=== PATIENT | female | born 1935 | race Caucasian/White ===

== ENCOUNTER 2020-06-30 22:23 | Emergency (ER) | payer MEDICARE, BC, SELFPAY ==
--- NOTE | ~2020-06-30 | CT_ITS ---
EXAMINATION: CT abdomen pelvis w con DATE: 07/01/2020 00:20 INDICATION: Abdominal pain. TECHNIQUE: Computed tomography (CT) of the abdomen and pelvis was performed with 100 mL Omnipaque 350 intravenous contrast. Automated exposure control and iterative reconstruction technique were employe d. The dose-length product was 1134.03 mGy-cm. COMPARISON: CT abdomen and pelvis 01/28/2018 FINDINGS: The visualized portions of the lung bases demonstrate mild atelectasis. There is mild chron ic lung disease in paraspinal right lower lobe. No pleural effusion. Cardiomegaly is noted. There are coronary artery calcifications. Again seen is a small pericardial effusion. Again seen is mild intra hepatic biliary duct dilatation, likely secondary to cholecystectomy. The spleen and pancreas are nor mal. There are masses in the adrenal glands measuring up to 2.0 cm on the left without change in size , likely adenomas. There are cysts in the kidneys measuring up to 3.6 cm on the right. There is an an astomosis in the rectosigmoid. There are no dilated loops of bowel. The appendix is not visualized. T here are no pathologically enlarged lymph nodes. There is no free intraperitoneal fluid. There is a p eriumbilical hernia containing fat. There are multiple fibroids in the uterus. The endometrial comple x is thickened to 11 mm. There is severe thoracolumbar spondylosis. There are changes of posterior fu kavya procedure from L3 to L5. There is moderate osteoarthritis of the hips. IMPRESSION: 1. Thickened endometrial complex. The differential diagnosis includes endometrial hyperplasia, polyp, and carcinoma. Biopsy is recommended. 2. Periumbilical hernia containing fat. Reviewed, dictated and finalized at location A. GER MAINTENANCE IMPRESSION: 1. Thickened endometrial complex. The differential diagnosis includes endometri al hyperplasia, polyp, and carcinoma. Biopsy is recommended. 2. Periumbilical hernia containing fat.
[2020-06-30 22:20] VITALS: PULSE 97; RESP 20; TEMP 37; O2SAT 100
[2020-06-30 22:31] VITALS: BP 149/107
--- NOTE | 2020-06-30 22:35 | PC.NURSE ---
daughter of the pt is named emerita can be reached at [phone]
[2020-06-30 23:14] VITALS: BP 158/107; PULSE 82; RESP 12; O2SAT 99
--- NOTE | 2020-06-30 23:15 | PC.NURSE ---
Pt. unable to void
--- NOTE | 2020-06-30 23:15 | PC.NURSE ---
Pt. unable to void at this time.
[2020-06-30 23:49] LABS: Basophils Percent Auto 0.3 % (0.2-1.2); Eosinophils Absolute Auto 0.1 K/mm3 (0-0.3); Eosinophils Percent Auto 1.3 % (0-4.4); Hematocrit 46.2 % (37.0-47.0); Hemoglobin 15.1 g/dL (12.0-15.0); Immature Granulocyte Absolute 0.03 K/mm3 (0.00-0.031); Immature Granulocyte Percent A 0.3 % (0-0.5); Lymphocytes Percent Auto 18.3 % (18.3-44.2); Mean Corpuscular HGB Conc 32.7 g/dl (32-36); Mean Corpuscular Hemoglobin 31.2 pg (26-34); Mean Corpuscular Volume 95.5 fl (80-100); Mean Platelet Volume 10.9 fl (7.4-10.4); Monocytes Absolute Auto 0.6 K/mm3 (0.1-0.6); Neutrophils Absolute Auto 6.3 K/mm3 (1.3-6.7); Neutrophils Percent Auto 72.8 % (45.5-73.1); Platelet Count Result 207 k/mm3 (150-375); Red Blood Count 4.84 M/mm3 (4.2-5.4); Red Cell Distribution Width 14.2 % (11.5-14.5); White Blood Count 8.7 K/mm3 (4.5-10.0)
[2020-06-30] MEDS: MORPHINE SULFATE (*CRX) 4 MG/ML INJ IV PUSH (23:49)
[2020-06-30] MEDS: ONDANSETRON INJ 4 MG/2 ML VIAL IV PUSH (23:49)
--- NOTE | 2020-06-30 23:51 | ED.GENADULT ---
HPI - General Adult General Chief complaint: Abdominal Pain Stated complaint: flank pain Time Seen by Provider: 06/30/20 23:18 History of Present Illness HPI narrative: Patient is a 85-year-old female who presents the emergency department with chief complaint of abdominal pain. The patient reports that she has pain on the right side of her abdomen states that several months ago she bent over and felt a click in her right hip area. The patient states that since then she has been having discomfort and it is gradually gotten worse. The patient states that the pain now is on the right side of her abdomen describes it as sharp states is worse with movement. Patient states she has an appointment scheduled for tomorrow morning with her primary care physician but today the pain got so bad that she decided to come to the emergency department for evaluation. Patient reports that she has prior history of an appendectomy and a cholecystectomy. Patient denies fever denies chills denies vomiting or diarrhea. Patient also reports that she has history of a bowel perforation with bowel resection Related Data Home Medications Medication Instructions Recorded Confirmed apixaban 5 mg tablet 5 mg PO BID 04/08/19 carvedilol 3.125 mg tablet 3.125 mg PO Q12H 04/08/19 hydrochlorothiazide 25 mg tablet 25 mg PO DAILY 04/08/19 Allergies Allergy/AdvReac Type Severity Reaction Status Date / Time naproxen Allergy Unknown Unknown Verified 06/30/20 22:27 Review of Systems Review of Systems: Narrative: A 10 system review of systems was completed on the patient and is negative except for what is stated in the HPI. Nursing and ancillary documentation was reviewed. FOR[facility]LY [facility], [facility] Past Medical History Medical History Chronic diarrhea Surgical History Surgical History Status post laparoscopic-assisted sigmoidectomy Family History Family History Father Family history of malignant neoplasm, Onset Age: 57 Patient's father is Other Family history of coronary artery disease Social History Social History Smoking status: Never smoker Second hand tobacco smoke exposure: No Alcohol intake: never Substance use: never Substance use type: does not use Gender identity (if verbalized by the patient): Female Exam Narrative: Exam Narrative: GENERAL: Well-appearing, well-nourished, and in no acute distress. HEAD: Normocephalic, atraumatic. EYES: PERRLA and EOMI. ENT: Nares clear, no rhinorrhea or epistaxis. Mucous membranes moist. NECK: Supple. CHEST: Clear to auscultation. No respiratory distress. HEART: Regular rate and rhythm. No murmur heard. Normal peripheral pulses. ABDOMEN: Soft, diffusely tender on the right quadrant and right lower quadrant, nondistended, normal active bowel sounds. EXTREMITIES: Normal range of motion. No edema. SKIN: Warm, dry, no rash. NEURO: No focal deficits. Alert and oriented x3. PSYCH: Normal mood and affect. Course Course Emergency Course: CT scan of the abdomen pelvis shows no acute abnormality. Laboratory studies were within normal limits with exception of a slight urinary tract infection. Vital Signs Vital signs: Vital Signs Temperature 37.0 C 06/30/20 22:20 Pulse Rate 97 06/30/20 22:20 Respiratory Rate 20 06/30/20 22:20 Pulse Oximetry 100 06/30/20 22:20 Temperature 37.0 C 06/30/20 22:20 Pulse Rate 91 07/01/20 00:28 Respiratory Rate 12 07/01/20 00:28 Blood Pressure 136/115 H 07/01/20 00:28 Pulse Oximetry 95 07/01/20 00:28 Medical Decision Making Vital Signs Vital Signs: Vital Signs Temperature 37.0 C 06/30/20 22:20 Pulse Rate 97 06/30/20 22:20 Respiratory Rate 20 06/30/20 22:20 Pulse
[2020-06-30] MEDS: SODIUM CHLORIDE 0.9% IV 1,000 ML 999 ML IV CONT (23:59)
[2020-07-01 00:04] LABS: Alanine Aminotransferase 22 U/L (4-35); Albumin Level 4.1 g/dL (3.5-5.1); Alkaline Phosphatase 103 U/L (38-126); Anion Gap 4 mmol/L (8-16); Aspartate Amino Transferase 32 U/L (14-36); Bilirubin,Total 0.8 mg/dL (0.2-1.3); Blood Urea Nitrogen 23 mg/dL (7-17); Calcium 9.3 mg/dL (8.4-10.2); Carbon Dioxide 30 mmol/L (22-30); Chloride 105 mmol/L (98-107); Estimated Glomerular Filt Rate > 60; Glucose 113 mg/dL (65-105); Lipase 264 U/L (23-300); Potassium 3.7 mmol/L (3.4-5.0); Sodium 139 mmol/L (137-145)
[2020-07-01 00:28] VITALS: BP 136/115; PULSE 91; RESP 12; O2SAT 95
[2020-07-01 00:53] LABS: Add Urine Microscopic? YES; Appearance Urine Clear (Clear); Bilirubin Urine Negative (Negative); Blood Urine Negative (Negative); Color Urine Yellow (Yellow); Glucose Urine UA Negative (Negative); Ketones Urine Trace mg/dL (Negative); Leukocyte Esterase Ur 1+ LEU/UL (Negative); Mucus Urine Rare /lpf; Nitrate Urine Negative (Negative); Protein Urine 1+ mg/dL (Negative); RBC Urine 0-2 /hpf (0-2); Squamous Epithelial Cell Urine Moderate /hpf (Few); Urobilinogen Urine Negative mg/dL (<2.0)
[2020-07-01 00:54] LABS: Specific Grav Ur 1.032 (1.001-1.035)
[2020-07-01] MEDS: CEPHALEXIN 500 MG CAPSULE PO (01:19)
[2020-07-01] MEDS: MORPHINE SULFATE (*CRX) 4 MG/ML INJ IV PUSH (01:20)
[2020-07-01 01:50] VITALS: BP 158/90; PULSE 88; RESP 17; O2SAT 97
== END 2020-07-01 01:50 | disposition home or self-care (01) ==
PROVIDERS: Emergency Provider Emergency Medicine; PCP Family Medicine
DX: N39.0 Urinary tract infection, site not specified (principal); R10.84 Generalized abdominal pain
CPT/HCPCS: 36415; 74177; 80053; 81001; 83690; 85025; 96361; 96374; 96375; 96376; 99284; A9270; J2270; J2405; J7030; Q9967

== ENCOUNTER → 2020-07-15 09:47 | Outpatient (CLI) | payer MEDICARE, BC, SELFPAY ==
--- NOTE | ~2020-07-15 | XR_ITS ---
EXAMINATION: XR hip RT 2V w AP pelvis EXAM DATE: 07/15/2020 10:07 INDICATION: M25.551 - Pain in right hip . TECHNIQUE: Right hip frontal, 'frog leg' projections for interpretation. Frontal projection pelvis. There is no prior study for comparison. FINDINGS: Smooth right hip femoral head contour, no radiographic evidence of avascular necrosis. The re is moderate symmetric bilateral hip primary osteoarthritis. Lower lumbar fusion hardware. Calcifi cations in the pelvis are believed to be phleboliths. IMPRESSION: Moderate bilateral hip osteoarthritis. Reviewed, dictated and finalized at location B. ER ESTHETICIAN
== END ==
PROVIDERS: PCP Family Medicine; Visit Provider Family Medicine
DX: M16.0 Bilateral primary osteoarthritis of hip (principal)
CPT/HCPCS: 73502

== ENCOUNTER → 2020-09-10 00:48 | Outpatient (CLI) | payer MEDICARE, BC, SELFPAY ==
[2020-09-10 21:02] LABS: SARS-CoV-2 RNA PCR Negative
== END ==
PROVIDERS: PCP Family Medicine; Visit Provider Obstetrics & Gynecology
DX: Z01.812 Encounter for preprocedural laboratory examination (principal); Z20.822 Contact with and (suspected) exposure to COVID-19
CPT/HCPCS: C9803; U0003; U0005

== ENCOUNTER 2020-09-10 09:39 | Outpatient (CLI) | payer MEDICARE, BC, SELFPAY ==
--- NOTE | 2020-09-10 10:30 | ECG_ITS ---
Measurements Intervals Happy Rate: 93 P: RI: 0 QRS: -12 QRSD: 87 T: 8 QT: 349 QTc: 436 Interpretive Statements ATRIAL FIBRILLATION POOR R WAVE PROGRESSION, ANTERIOR LEADS CONSIDER INFERIOR INFARCT, AGE INDETERMINATE BASELINE ARTIFACT- I, II, III, AVR, AVL ABNORMAL ECG Electronically Signed On 09-10-2020 9:59:18 CDT by Chip Culp D.O.
== END 2020-09-10 09:40 | disposition home or self-care (01) ==
LOC: ANHSURGERY 09:43
PROVIDERS: PCP Family Medicine; Visit Provider Obstetrics & Gynecology
DX: I48.20 Chronic atrial fibrillation, unspecified (principal); Z01.818 Encounter for other preprocedural examination; R94.31 Abnormal electrocardiogram [ECG] [EKG]
CPT/HCPCS: 93005; C9803; U0003; U0005

== ENCOUNTER 2020-09-13 01:48 | Day surgery (SDC) | payer MEDICARE, BC, SELFPAY ==
[2020-09-02 16:09] VITALS: BMI 36.9
--- NOTE | 2020-09-11 10:09 | PM.IMHP ---
H&P: HPI History of Present Illness Date/Time: 09/11/20 10:09 85 y/o female coming in for D&C/hysteroscopy due to thickened endometrium on imaging and inadequate endometrial sample on in office biopsy. She denies postmenopausal bleeding. Chief Complaint: thickened endometrium Review of Systems Review of Systems: All systems reviewed & are unremarkable except as noted in HPI and below PMFSH Past Medical History Medical History Arrhythmia Arthritis Chronic diarrhea History of uterine fibroid Surgical History Surgical History History of appendectomy History of back surgery 2003 History of bilateral tubal ligation 1976 History of cholecystectomy History of dilation and curettage History of endometrial ablation History of hernia repair History of knee replacement x3 History of removal of cyst History of rotator cuff surgery 1998 Status post laparoscopic-assisted sigmoidectomy 2019 Family History Family History Father Family history of malignant neoplasm, Onset Age: 57 Patient's father is Lung cancer Brain cancer Acute myocardial infarction Mother Depression Anxiety Other Family history of coronary artery disease Social History Social History Smoking status: Never smoker Second hand tobacco smoke exposure: No Alcohol intake: never Substance use: never Gender identity (if verbalized by the patient): Female Spiritual care concerns: No Meds Home Medications and Allergies Home Medications Medication Instructions Recorded Confirmed Type apixaban 5 mg tablet 5 mg PO BID 04/08/19 09/02/20 History carvedilol 3.125 mg tablet 3.125 mg PO Q12H 04/08/19 09/02/20 History potassium chloride 8 mEq 8 meq PO BID #180 tablet 07/05/20 09/02/20 Rx tablet,extended release multivitamin 1 tablet PO DAILY 07/27/20 09/02/20 History acetaminophen 300 mg-codeine 30 mg 1 tablet PO Q12H PRN #60 tablet 08/24/20 09/02/20 Rx tablet clobetasol 0.05 % topical ointment 1 applic TOPICAL DAILY #60 g 08/31/20 09/02/20 Rx nitrofurantoin macrocrystal 100 mg 100 mg PO Q12H #14 cap 08/31/20 09/02/20 Rx capsule Allergies Allergy/AdvReac Type Severity Reaction Status Date / Time No Known Allergies Allergy Verified 09/02/20 15:46 Exam Const: General: no acute distress, alert and awake Resp: Auscultation: clear to auscultation bilaterally Cardio: Rate: regular rate Rhythm: regular rhythm GI: Inspection: non-distended GI Palp: Yes Soft to palpation and No Tenderness to palpation present (GI) : External Female Exam: normal external appearance Bimanual exam- vagina & uterus: normal bimanual exam, uterine size normal, uterine mobility normal and soft Bimanual Exam- Adnexa, other: normal adnexae, no masses and No adnexal tenderness Extrem: General: no pedal edema and no calf tenderness Psych: Mental Status: mental status grossly normal Assessment and Plan Assessment and plan (1) Thickened endometrium: Code(s): R93.89 - Abnormal findings on diagnostic imaging of other specified body structures Status: Acute Assessment and Plan: She opted and signed consent for D&C/hysteroscopy after risks, benefits, complications, and alternatives discussed. She was advised to stop Eliquis 48 hours prior to surgery and may resume after surgery later that same day. She expressed understanding and wishes to proceed
[2020-09-13] MEDS: LACTATED RINGERS 1,000 ML 30 ML IV CONT (11:49)
[2020-09-13] MEDS: ACETAMINOPHEN 500 MG TABLET 1000 MG PO (11:51)
[2020-09-13 12:01] VITALS: BP 150/101; PULSE 85; RESP 18; TEMP 37.1; O2SAT 99
--- NOTE | 2020-09-13 12:21 | WPDANESEPPF ---
Anes - Initial Pre Proc Eval Procedure: Operation Date: 09/13/20 13:30 Proposed Procedures p Hysteroscopy Dilation and Curettage - Antionette Mclean MD Date/Time: 09/13/20 12:21 Surgeon: Antionette Mclean MD Pre Op Diagnosis: thickened endometrium Patient Data Age: 85 Gender: F Height: 1.63 m Weight: 99.3 kg Last Vital Signs Temp 37.1 C 09/13/20 12:01 Pulse 85 09/13/20 12:01 Resp 18 09/13/20 12:01 BP 150/101 H 09/13/20 12:01 Pulse Ox 99 09/13/20 12:01 Allergies Allergy/AdvReac Type Severity Reaction Status Date / Time No Known Allergies Allergy Verified 09/13/20 11:55 Home Medications Medication Instructions Recorded Confirmed Type apixaban 5 mg tablet 5 mg PO BID 04/08/19 09/13/20 History carvedilol 3.125 mg tablet 3.125 mg PO Q12H 04/08/19 09/13/20 History potassium chloride 8 mEq 8 meq PO BID #180 tablet 07/05/20 09/02/20 Rx tablet,extended release multivitamin 1 tablet PO DAILY 07/27/20 09/02/20 History acetaminophen 300 mg-codeine 30 mg 1 tablet PO Q12H PRN #60 tablet 08/24/20 09/02/20 Rx tablet clobetasol 0.05 % topical ointment 1 applic TOPICAL DAILY #60 g 08/31/20 09/02/20 Rx nitrofurantoin macrocrystal 100 mg 100 mg PO Q12H #14 cap 08/31/20 09/02/20 Rx capsule Patient hx anesthesia problems: none Family hx anesthesia problems: none PMFSH Past Medical History Medical History (Updated 09/13/20 @ 07:51 by Christophe Pineda DO) Arrhythmia Arthritis Chronic atrial fibrillation Chronic diarrhea Essential (primary) hypertension History of pulmonary embolism History of uterine fibroid Surgical History Surgical History (Updated 09/13/20 @ 07:51 by Christophe Pineda DO) History of appendectomy History of back surgery 2003 History of bilateral tubal ligation 1976 History of cholecystectomy History of dilation and curettage History of endometrial ablation History of hernia repair History of knee replacement x3 History of removal of cyst History of rotator cuff surgery 1998 History of tubal ligation Status post laparoscopic-assisted sigmoidectomy 2019 Family History Family History Father Family history of malignant neoplasm, Onset Age: 57 Patient's father is Lung cancer Brain cancer Acute myocardial infarction Mother Depression Anxiety Other Family history of coronary artery disease Social History Social History Smoking status: Never smoker Second hand tobacco smoke exposure: No Alcohol intake: never Substance use: never Living arrangements: with family Gender identity (if verbalized by the patient): Female Spiritual care concerns: No Anes - Eval Final PreProcedure Day of Procedure 09/13/20 12:21 Patient weight: obese Heart: regular rate and rhythm Lungs: clear to auscultation and normal air movement Airway: Mallampati scale class III Neurological: alert and oriented Last oral intake: >/= 8 hours ASA classification: III Emergent: no Anesthetic plan: proceed Anesthesia type and monitoring: general GIVS and standard monitoring Informed Consent: The patient's anesthetic plan and its attendant risks and benefits were discussed with the patient/family/POA. Questions were solicited and answers provided to the satisfaction of the patient/family/POA.
[2020-09-13 12:22] VITALS: BP 149/93; PULSE 93
--- NOTE | 2020-09-13 13:25 | WPDHPUPDATE1 ---
History and Physical Update Update Date/Time: 09/13/20 13:25 History and Physical has been reviewed, including an updated exam of the patient. There are NO changes in the patient's condition. Risks, benefits, and alternatives have been discussed and questions answered. Patient agrees to proceed with procedure.
--- NOTE | 2020-09-13 13:49 | PM.PROC ---
Procedure Note - Detailed Date of procedure: 09/13/20 Pre-op diagnosis: thickened endometrium Post-op diagnosis: other (thickened endometrium, endometrial poyp) Procedure performed: D&C, hysteroscopy, polypectomy using MyoSure Description of procedure: She was taken to the operating room where she was sedated and placed in the dorsal lithotomy position. A speculum was placed in the vagina. The anterior lip of the cervix was grasped with a single-tooth tenaculum. The uterus sounded to 9 cm. Cervix was dilated to elapse passage of the hysteroscope. A moderate sized endometrial polyp was visualized. The MyoSure device was then made ready. The MyoSure device was then used to remove the polyp in its entirety under direct visualization. Once the endometrial cavity looks completely clear, the hysteroscope was removed. The tenaculum was removed. The left tenaculum site was bleeding slightly. Pressure was held with ring forceps until excellent hemostasis was assured. All instruments removed from the vagina. She tolerated the procedure well. Sponge, lap, and instrument counts were correct x2. She was taken to the recovery room in stable condition. Anesthesia: MAC Surgeon: Antionette Mclean MD Drains: No Packing: No Pathology: yes Complications: No immediate complications Condition: stable Disposition: PACU Findings: Moderate sized endometrial polyp, otherwise normal endometrial cavity
[2020-09-13 14:31] VITALS: BP 121/74; PULSE 87; RESP 10; O2SAT 93
[2020-09-13 15:00] VITALS: BP 129/75; PULSE 89; RESP 14; O2SAT 95
[2020-09-13 15:15] VITALS: BP 146/79; PULSE 72; RESP 14
== END 2020-09-13 15:32 | disposition home or self-care (01) ==
PROVIDERS: PCP Family Medicine; Visit Provider Obstetrics & Gynecology
PROC: 0U5B8ZZ Destruction of Endometrium, Via Natural or Artificial Opening Endoscopic (ICD-10-PCS; CPT 58563; principal; 2020-09-13 13:30)
DX: N84.0 Polyp of corpus uteri (principal); I48.20 Chronic atrial fibrillation, unspecified; I10 Essential (primary) hypertension; Z79.01 Long term (current) use of anticoagulants; Z86.711 Personal history of pulmonary embolism; E66.9 Obesity, unspecified; Z68.37 Body mass index [BMI] 37.0-37.9, adult
CPT/HCPCS: 58558; 88305; A9270; J1100; J2405; J2704; J3010; J7120

== ENCOUNTER 2020-10-21 19:38 | Emergency (ER) | payer MEDICARE, BC, SELFPAY ==
--- NOTE | 2020-10-21 19:42 | PC.NURSE ---
Pt's visitor, her daughter, informed of visitor policy while waiting, pt daughter states I don't care what you're saying, I'm not leaving her side. There are a lot of other people here with visitors. I'm not leaving . Explained that there is potential for exposure to COVID, states I don't care. We've been vaccinated . Pt and daughter to waiting area awaiting triage.
[2020-10-21 20:53] VITALS: PULSE 93; RESP 19; TEMP 36.4; O2SAT 98
[2020-10-21 21:07] LABS: Basophils Percent Auto 0.3 % (0.2-1.2); Eosinophils Absolute Auto 0.1 K/mm3 (0-0.3); Hemoglobin 15.2 g/dL (12.0-15.0); Immature Granulocyte Absolute 0.01 K/mm3 (0.00-0.031); Immature Granulocyte Percent A 0.2 % (0-0.5); Lymphocytes Absolute Auto 2.09 K/mm3 (0.9-3.2); Lymphocytes Percent Auto 32.2 % (18.3-44.2); Mean Corpuscular HGB Conc 32.3 g/dl (32-36); Mean Corpuscular Hemoglobin 30.8 pg (26-34); Mean Corpuscular Volume 95.3 fl (80-100); Mean Platelet Volume 10.5 fl (7.4-10.4); Monocytes Absolute Auto 0.5 K/mm3 (0.1-0.6); Monocytes Percent Auto 8.3 % (2.6-8.5); Neutrophils Absolute Auto 3.7 K/mm3 (1.3-6.7); Platelet Count Result 197 k/mm3 (150-375); Red Blood Count 4.93 M/mm3 (4.2-5.4); Red Cell Distribution Width 14.5 % (11.5-14.5); White Blood Count 6.5 K/mm3 (4.5-10.0)
[2020-10-21 21:17] LABS: Alanine Aminotransferase 21 U/L (4-35); Albumin Level 4.2 g/dL (3.5-5.1); Alkaline Phosphatase 111 U/L (38-126); Anion Gap 8 mmol/L (8-16); Aspartate Amino Transferase 29 U/L (14-36); Bilirubin,Total 0.7 mg/dL (0.2-1.3); Blood Urea Nitrogen 23 mg/dL (7-17); Calcium 9.8 mg/dL (8.4-10.2); Carbon Dioxide 27 mmol/L (22-30); Chloride 109 mmol/L (98-107); Estimated Glomerular Filt Rate > 60; Glucose 100 mg/dL (65-105); Lipase 72 U/L (23-300); Potassium 3.9 mmol/L (3.4-5.0); Sodium 144 mmol/L (137-145)
[2020-10-21 21:25] VITALS: BP 162/89; PULSE 74; RESP 21; TEMP 36.9; O2SAT 98
--- NOTE | 2020-10-21 21:32 | PC.NURSE ---
Pt presents to ED with complaints of abdominal pain. Pt states she was reaching above her head to grab something when she felt at pop in her right lower abdomen. Pt states pain increases with laughter, activity and movement. Pt state she has a hernia on her right side that has pushed through yet and is worried that she may have caused hernia protrude. 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 Pt noted to be alert and oriented x4 and in no obvious distress. Daughter is present at bedside and call button and personal items within reach. Pt advised to press call button for assistance.
--- NOTE | 2020-10-21 22:28 | PC.NURSE ---
Pt resting on cart and is aware of need for UA and states she cannot urinate at this time. Advised to press call button for assistance.
--- NOTE | 2020-10-21 23:21 | ED.ABDPAIN ---
HPI - Abdominal Pain General Chief Complaint: Abdominal Pain Stated Complaint: right sided abd pain Time Seen by Provider: 10/21/20 22:15 Source: patient Mode of arrival: ambulatory Limitations: no limitations History of Present Illness HPI narrative: 85-year-old female She has had several previous abdominal operations She has a somewhat chronically occasionally recurring issue with a small hernia or abdominal wall strain on the right side Date after bending over to pick something up because her would not do it she experienced sharp pains in more or less the typical area She does not have any other symptoms such as nausea vomiting diarrhea constipation any urinary symptoms any radiating pain any numbness or any back pain If she is lying calmly and still everything is fine I had some only when she tries to sit up or lift her legs up that she experiences sharp discomfort She had an elastic abdominal wrap on which was somewhat helpful but had migrated cephalad up onto the lower chest until it was really not doing her any good any longer Related Data Home Medications Medication Instructions Recorded Confirmed apixaban 5 mg tablet 5 mg PO BID 04/08/19 09/13/20 carvedilol 3.125 mg tablet 3.125 mg PO Q12H 04/08/19 09/13/20 multivitamin 1 tablet PO DAILY 07/27/20 09/02/20 Allergies Allergy/AdvReac Type Severity Reaction Status Date / Time No Known Allergies Allergy Verified 09/22/20 09:50 Review of Systems Review of Systems: All systems reviewed & are unremarkable except as noted in HPI and below Constitutional: Constitutional: Reports no additional constitutional complaints, Denies chills, Denies fever(s) and Denies headache(s) Eyes: Eyes: Reports no additional eye complaints and Denies change in vision ENT: Denies headache(s) and Denies sore throat Cardiovascular: Cardiovascular: Denies chest pain and Denies dyspnea Respiratory: Respiratory: Denies cough and Denies dyspnea Gastrointestinal: Gastrointestinal: Reports abdominal pain, Denies bloating, Denies constipation, Denies heartburn, Denies diarrhea, Denies nausea and Denies vomiting Genitourinary: Genitourinary: Denies hematuria, Denies urinary frequency, Denies dysuria and Denies flank pain Musculoskeletal: Musculoskeletal: Reports myalgias, Denies deformity, Denies arthralgias, Denies joint swelling and Denies numbness Integumentary/Breasts: Skin/Breast: Denies rash and Denies wounds Neurologic: Denies headache(s), Denies focal weakness and Denies numbness Psychiatric: Psychiatric: Reports no additional psychiatric complaints Endocrine: Endocrine: Reports no additional endocrine complaints Hematologic/Lymphatic: Hematologic/Lymphatic: Reports no additional hematologic/lymphatic complaints Allergic/Immunologic: Allergic/Immunologic: Reports no additional allergic/immunologic complaints [facility] Past Medical History Medical History Arrhythmia Arthritis Chronic atrial fibrillation Chronic diarrhea Essential (primary) hypertension History of hysteroscopy 09/13/20 History of pulmonary embolism History of uterine fibroid Surgical History Surgical History History of appendectomy History of back surgery 2003 History of bilateral tubal ligation 1976 History of cholecystectomy History of dilation and curettage 09/13/20, with hysteroscopy and polypectomy History of endometrial ablation History of hernia repair History of knee replacement x3 History of removal of cyst History of rotator cuff surgery 1999 History of tubal ligation Status post laparoscopic-assisted sigmoidectomy 2019 Family History Family History Father Family history of malignant neoplasm, Onset Age: 57 Patient's father is Lung cancer Brain cancer Acute my
[2020-10-21] MEDS: HYDROcodone/acetaminophen (*CRX) 5-325 MG TABLET 1 TAB PO (23:34)
--- NOTE | 2020-10-21 23:54 | PC.NURSE ---
EDMD presented to bedside.
--- NOTE | 2020-10-22 00:15 | PC.NURSE ---
Pt states pain has improved and is now rated 5/10 and states she feels much better. How long does that pill last because I feel good. I need to hurry and get home before it wears off . Pt advised to press call button for assistance. Daughter remains at bedside.
[2020-10-22 00:23] VITALS: BP 169/92; PULSE 79; RESP 18; TEMP 36.8; O2SAT 97
== END 2020-10-22 00:25 | disposition home or self-care (01) ==
PROVIDERS: Emergency Medicine; Emergency Provider Emergency Medicine; PCP Family Medicine
DX: S39.011A Strain of muscle, fascia and tendon of abdomen, initial encounter (principal); I48.20 Chronic atrial fibrillation, unspecified; Z79.01 Long term (current) use of anticoagulants; I10 Essential (primary) hypertension; Z86.711 Personal history of pulmonary embolism; Z96.659 Presence of unspecified artificial knee joint; X50.9XXA Other and unspecified overexertion or strenuous movements or postures, initial encounter
CPT/HCPCS: 36415; 80053; 83690; 85025; 99283; A9270

== ENCOUNTER → 2021-08-29 13:36 | Outpatient (CLI) | payer MEDICARE, BC, SELFPAY ==
--- NOTE | ~2021-08-29 | CT_ITS ---
EXAMINATION: CT abdomen pelvis wo con DATE: 08/29/2021 14:16 INDICATION: Right lower quadrant abdominal wall pain TECHNIQUE: Computed tomography (CT) of the abdomen and pelvis was performed without intravenous contr ast. The dose-length product (DLP) was 898.86 mGy-cm. Automated exposure control and iterative recons truction technique were employed. COMPARISON: 07/01/2020 FINDINGS: Minimal dependent atelectasis is present in the lung bases. The heart size is normal. Calci fied coronary artery atherosclerosis is noted. There is a trace pericardial effusion. The gallbladder is surgically absent. Respiratory motion artifact slightly limits the examination. The liver, spleen , pancreas, and right adrenal gland are normal. 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 Th ere is a 3.5 cm cyst of the right kidney. The left kidney is normal. No pathologically enlarged abdom inal or pelvic lymph nodes are identified. There is calcified atherosclerosis of the aorta and many o f the other arteries. There is no free intraperitoneal gas or evidence of bowel obstruction. Calcifie d uterine fibroids are noted. There is a chronic fat-containing periumbilical hernia. Changes of post erior fusion are noted in the lumbar spine. There is severe lumbar spondylosis. IMPRESSION: 1. Chronic periumbilical hernia containing fat. Reviewed, dictated and finalized at location A.
== END ==
PROVIDERS: PCP Family Medicine; Visit Provider Family Medicine
DX: R10.31 Right lower quadrant pain (principal); K42.9 Umbilical hernia without obstruction or gangrene
CPT/HCPCS: 74176

== ENCOUNTER 2022-03-18 19:03 | Emergency (ER) | payer MEDICARE, BC, SELFPAY ==
[2022-03-18] VITALS (15 sets, daily range): BP systolic 148–166; BP diastolic 91–108; PULSE 94–115; RESP 12–23; TEMP 36.9; O2SAT 95–99
--- NOTE | ~2022-03-18 | CT_ITS ---
EXAMINATION: CT abdomen pelvis w con DATE: 03/18/2022 21:09 INDICATION: RLQ pain TECHNIQUE: Computed tomography (CT) of the abdomen and pelvis was performed with 100 mL Omnipaque-350 intravenous contrast. Automated exposure control and iterative reconstruction technique were employe d. The dose-length product was 1079.02 mGy-cm. COMPARISON: 08/29/2021. FINDINGS: Exam limited by arm positioning, respiratory motion, and metal artifact. Lower thorax: Senescent lung changes. Mild bibasilar scar/atelectasis. Cardiomegaly. Coronary artery calcifications. Small volume pericardial fluid. Liver: Intrahepatic biliary duct dilation, not significantly changed. Biliary/Gallbladder: Gallbladder is absent. Mild extrahepatic duct dilation, likely due to cholecyste ctomy. Pancreas: Severe pancreatic atrophy. Spleen: Normal. Adrenals: Stable bilateral adrenal masses, likely adenomas. Kidneys: Bilateral simple cysts. Inflammatory changes at the left renal pelvis and renal hilum, exten ding down the proximal left ureter. Left urothelial enhancement. Suggestion of patchy enhancement in the left kidney however this determination is limited by beam hardening artifact from arm position an d spine hardware. GI tract: Distal esophageal and gastric wall edema. No small or large bowel dilation. Appendix not vi sualized. Uncomplicated rectosigmoid anastomosis. Mesentery/Peritoneum: No ascites, mass, or free air. Retroperitoneum: No mass. Pelvis: Mild bladder wall inflammatory change. Tiny gas bubble in the nondependent bladder lumen. Red emonstration of endometrial complex thickening and multiple uterine fibroids. Soft Tissues: Fat-containing umbilical hernia, with mild inflammatory change. Bones: No acute osseous finding. Lumbar fusion hardware, without evident complication IMPRESSION: Unchanged small pericardial effusion. Esophagitis/gastritis. Possible cystitis with ascending infecti on on the left. Fat-containing umbilical hernia with mild inflammation. Endometrial complex thickenin g, prior recommendation for endometrial biopsy is unchanged. Reviewed, dictated and finalized at location K. IMPRESSION: Unchanged small pericardial effusion. Esophagitis/gastritis. Possible cystitis with ascending infection on the left. Fat-containing umbilical hernia with mild inflammation. Endometrial complex thickening, prior recommendation for endomet rial biopsy is unchanged.
[2022-03-18] MEDS: MORPHINE SULFATE (*CRX) 4 MG/ML INJ IV PUSH (19:46)
[2022-03-18 20:00] LABS: Basophils Percent Auto 0.1 % (0.2-1.2); Hematocrit 44.7 % (37.0-47.0); Hemoglobin 14.7 g/dL (12.0-15.0); Immature Granulocyte Absolute 0.05 K/mm3 (0.00-0.031); Immature Granulocyte Percent A 0.5 % (0-0.5); Lymphocytes Absolute Auto 1.74 K/mm3 (0.9-3.2); Lymphocytes Percent Auto 16.1 % (18.3-44.2); Mean Corpuscular HGB Conc 32.9 g/dl (32-36); Mean Corpuscular Volume 94.3 fl (80-100); Mean Platelet Volume 10.6 fl (7.4-10.4); Monocytes Absolute Auto 0.9 K/mm3 (0.1-0.6); Monocytes Percent Auto 8.2 % (2.6-8.5); Neutrophils Absolute Auto 8.2 K/mm3 (1.3-6.7); Neutrophils Percent Auto 75.1 % (45.5-73.1); Platelet Count Result 225 k/mm3 (150-375); Red Blood Count 4.74 M/mm3 (4.2-5.4); Red Cell Distribution Width 14.9 % (11.5-14.5); White Blood Count 10.8 K/mm3 (4.5-10.0)
[2022-03-18 20:01] LABS: Appearance Urine Clear (Clear); Bilirubin Urine Negative (Negative); Blood Urine 3+ (Negative); Color Urine Yellow (Yellow); Glucose Urine UA Negative (Negative); Ketones Urine 1+ mg/dL (Negative); Leukocyte Esterase Ur Trace LEU/UL (Negative); Nitrate Urine Positive (Negative); Protein Urine 2+ mg/dL (Negative); pH Urine 6.5 (5.0-9.0)
[2022-03-18 20:15] LABS: Alanine Aminotransferase 21 U/L (6-35); Albumin Level 4.2 g/dL (3.5-5.1); Alkaline Phosphatase 145 U/L (38-126); Anion Gap 9 mmol/L (8-16); Aspartate Amino Transferase 31 U/L (14-36); Bilirubin,Total 1.6 mg/dL (0.2-1.3); Blood Urea Nitrogen 15 mg/dL (7-17); Calcium 9.5 mg/dL (8.4-10.2); Carbon Dioxide 29 mmol/L (22-30); Chloride 101 mmol/L (98-107); Estimated CRCL calculation 68 ml/min; Estimated Glomerular Filt Rate > 60; Glucose 125 mg/dL (65-110); Lipase 32 U/L (23-300); Potassium 3.7 mmol/L (3.4-5.0); Sodium 139 mmol/L (137-145)
--- NOTE | 2022-03-18 20:16 | ED.GENADULT ---
HPI - General Adult General Chief complaint: Unspecified Stated complaint: pains Time Seen by Provider: 03/18/22 19:21 History of Present Illness HPI narrative: Patient is an 86-year-old female who presents ER with lower abdominal pain. Ongoing over the last 3 days. Worsening this evening. Sharp and cramping. No radiation. Patient has some chronic right hip pain but this seems different. Has had issues with UTIs in the past. No fevers or chills or sweats. No diarrhea. Symptoms are worse with moving. Patient has history of partial colectomy. Does not believe she has history of diverticulitis. Related Data Home Medications Medication Instructions Recorded Confirmed apixaban 5 mg tablet (Eliquis) 5 mg PO BID 04/08/19 01/18/22 carvedilol 3.125 mg tablet 3.125 mg PO Q12H 04/08/19 01/18/22 multivitamin 1 tablet PO DAILY 07/27/20 01/18/22 Allergies Allergy/AdvReac Type Severity Reaction Status Date / Time No Known Allergies Allergy Verified 03/15/22 09:43 Review of Systems Review of Systems: All systems reviewed & are unremarkable except as noted in HPI and below Constitutional: Constitutional: Denies chills and Denies fever(s) Cardiovascular: Cardiovascular: Denies chest pain, Denies rapid heart rate, Reports leg edema (Chronic) and Denies radiating jaw, neck or arm pain Respiratory: Respiratory: Denies cough and Denies dyspnea Gastrointestinal: Gastrointestinal: Reports abdominal pain, Denies diarrhea, Denies nausea and Denies vomiting Genitourinary: Genitourinary: Reports nocturia and Reports dysuria [facility] Past Medical History Medical History Arrhythmia Arthritis Chronic atrial fibrillation Chronic diarrhea Essential (primary) hypertension History of pulmonary embolism History of uterine fibroid Surgical History Surgical History History of appendectomy History of back surgery 2002 History of bilateral tubal ligation 1976 History of cholecystectomy History of dilation and curettage 09/13/20, with hysteroscopy and polypectomy History of endometrial ablation History of hernia repair History of hysteroscopy 09/13/20 History of knee replacement x3 History of removal of cyst History of rotator cuff surgery 1998 History of tubal ligation Status post laparoscopic-assisted sigmoidectomy 2018 Family History Family History Father Family history of malignant neoplasm, Onset Age: 57 Patient's father is Lung cancer Brain cancer Acute myocardial infarction Mother Depression Anxiety Other Family history of coronary artery disease Social History Social History (Updated 03/15/22 @ 09:42 by Kinsey Catalan) Smoking status: Never smoker Second hand tobacco smoke exposure: No Alcohol intake: never Substance use: never Gender identity (if verbalized by the patient): Female Sexual Orientation (if Verbalized by the Patient): Straight or Heterosexual Spiritual care concerns: No Exam Narrative: GENERAL: Well-appearing, well-nourished, and in no acute distress. HEAD: Normocephalic, atraumatic. EYES: PERRL and EOMI. CHEST: Clear to auscultation. No respiratory distress. HEART: Irregular regular rate and rhythm. Normal peripheral pulses. ABDOMEN: Soft, mild tenderness right lower quadrant, nondistended, normal active bowel sounds. EXTREMITIES: Normal range of motion. Chronic lower extremity edema. SKIN: Warm, dry, no rash. NEURO: Alert and oriented x3. PSYCH: Normal mood and affect. Course Course Emergency Course: Discussed CT with patient and daughter. Ceftriaxone here and cefpodoxime for home. Also discussed endometrial thickness and need for [facility] follow-up and they verbalized understanding. Vital Signs Vital signs: Vital Signs Temperature 98.5 F 03/18/22 19:06 Pulse
[2022-03-18 20:30] LABS: Add Urine Microscopic? YES; Bacteria Urine Trace /hpf; Mucus Urine Rare /lpf; RBC Urine >75 /hpf (0-2); Squamous Epithelial Cell Urine Rare /hpf (Few); WBC Urine 51-75 /hpf
== END 2022-03-18 22:41 | disposition home or self-care (01) ==
PROVIDERS: Emergency Provider Emergency Medicine; PCP Family Medicine
DX: N39.0 Urinary tract infection, site not specified (principal); I48.20 Chronic atrial fibrillation, unspecified; I10 Essential (primary) hypertension; M19.90 Unspecified osteoarthritis, unspecified site; Z86.711 Personal history of pulmonary embolism; Z90.49 Acquired absence of other specified parts of digestive tract; Z96.659 Presence of unspecified artificial knee joint; Z79.01 Long term (current) use of anticoagulants; K42.9 Umbilical hernia without obstruction or gangrene; R93.89 Abnormal findings on diagnostic imaging of other specified body structures; K20.90 Esophagitis, unspecified without bleeding; K29.70 Gastritis, unspecified, without bleeding
CPT/HCPCS: 36415; 51701; 74177; 80053; 81001; 83690; 85025; 87077; 87086; 87186; 96365; 96375; 99284; J0696; J2270; Q9967

== ENCOUNTER 2022-04-16 14:07 | Emergency (ER) | payer MEDICARE, BC, SELFPAY ==
--- NOTE | ~2022-04-16 | CT_ITS ---
EXAMINATION: CT abdomen pelvis wo con DATE: 04/16/2022 17:05 INDICATION: left flank pain TECHNIQUE: Computed tomography (CT) of the abdomen and pelvis was performed without intravenous contr ast. Automated exposure control and iterative reconstruction technique were employed. The dose-length product was 867.25 mGy-cm. COMPARISON: 03/18/2022. FINDINGS: Lower thorax: Senescent lung changes. Cardiomegaly. Coronary artery calcification. Small hiatal herni a. Mild aortic calcification and ectasia. Liver: Normal. Biliary/Gallbladder: Gallbladder is absent. Mild extrahepatic biliary duct dilation, likely secondary to cholecystectomy. Pancreas: Atrophic. Spleen: Normal. Adrenals:Bilateral adenomas. Kidneys: Exophytic right upper pole cyst. No hydronephrosis, obstructing calcification, or suspicious mass. Previously described inflammatory changes have resolved. GI tract: No small or large bowel dilation. Uncomplicated appearing rectosigmoid anastomosis. Appendi x not visualized Mesentery/Peritoneum: No ascites, mass, or free air. Retroperitoneum: No mass. Atherosclerotic abdominal aortic and/or arterial calcifications. Pelvis: The urinary bladder is normal. Uterine fibroids. Soft Tissues: Small fat-containing uncomplicated bilateral inguinal hernias. Small ventral hernias wi thout significant inflammation containing fat and minimal portions of nonobstructed small bowel. Bones: No acute osseous finding. Uncomplicated posterior lumbar fusion hardware. IMPRESSION: No acute abdominopelvic process detected. Reviewed, dictated and finalized at location K. SOFTWARE ENGINEER
[2022-04-16 14:17] VITALS: BP 159/89; PULSE 88; RESP 20; TEMP 36.4; O2SAT 97
[2022-04-16 14:36] LABS: Basophils Percent Auto 0.3 % (0.2-1.2); Eosinophils Absolute Auto 0.1 K/mm3 (0-0.3); Eosinophils Percent Auto 1.6 % (0-4.4); Hematocrit 44.9 % (37.0-47.0); Hemoglobin 14.6 g/dL (12.0-15.0); Immature Granulocyte Absolute 0.02 K/mm3 (0.00-0.031); Immature Granulocyte Percent A 0.3 % (0-0.5); Lymphocytes Absolute Auto 1.86 K/mm3 (0.9-3.2); Lymphocytes Percent Auto 26.9 % (18.3-44.2); Mean Corpuscular HGB Conc 32.5 g/dl (32-36); Mean Corpuscular Hemoglobin 31.1 pg (26-34); Mean Corpuscular Volume 95.5 fl (80-100); Mean Platelet Volume 11.3 fl (7.4-10.4); Monocytes Absolute Auto 0.6 K/mm3 (0.1-0.6); Monocytes Percent Auto 8.5 % (2.6-8.5); Neutrophils Absolute Auto 4.3 K/mm3 (1.3-6.7); Neutrophils Percent Auto 62.4 % (45.5-73.1); Platelet Count Result 240 k/mm3 (150-375); Red Cell Distribution Width 14.7 % (11.5-14.5); White Blood Count 6.9 K/mm3 (4.5-10.0)
[2022-04-16 14:47] LABS: Appearance Urine Slightly Cloudy (Clear); Bilirubin Urine Negative (Negative); Blood Urine 3+ (Negative); Color Urine Yellow (Yellow); Glucose Urine UA Negative (Negative); Ketones Urine Negative (Negative); Leukocyte Esterase Ur 1+ LEU/UL (Negative); Nitrate Urine Positive (Negative); Protein Urine 1+ mg/dL (Negative); Urobilinogen Urine 0.2 mg/dL (<2.0); pH Urine 5.5 (5.0-9.0)
[2022-04-16 14:53] LABS: Add Urine Microscopic? YES; Bacteria Urine 1+ /hpf; Mucus Urine Rare /lpf; RBC Urine >75 /hpf (0-2); Squamous Epithelial Cell Urine Few /hpf (Few); WBC Urine 31-50 /hpf
[2022-04-16 14:55] LABS: Alanine Aminotransferase 18 U/L (6-35); Albumin Level 4.3 g/dL (3.5-5.1); Alkaline Phosphatase 126 U/L (38-126); Anion Gap 9 mmol/L (8-16); Aspartate Amino Transferase 35 U/L (14-36); Bilirubin,Total 0.9 mg/dL (0.2-1.3); Blood Urea Nitrogen 21 mg/dL (7-17); Calcium 9.8 mg/dL (8.4-10.2); Carbon Dioxide 27 mmol/L (22-30); Chloride 105 mmol/L (98-107); Estimated CRCL calculation 68 ml/min; Estimated Glomerular Filt Rate > 60; Glucose 94 mg/dL (65-110); Lipase 60 U/L (23-300); Potassium 4.2 mmol/L (3.4-5.0); Sodium 141 mmol/L (137-145)
[2022-04-16 16:17] VITALS: BP 160/90; PULSE 94; RESP 18; O2SAT 97
--- NOTE | 2022-04-16 16:53 | ED.GENADULT ---
HPI - General Adult General Chief complaint: Urogenital-Female Stated complaint: ?UTI LAP Time Seen by Provider: 04/16/22 16:03 Source: patient, RN notes reviewed and old records reviewed Mode of arrival: ambulatory Limitations: no limitations History of Present Illness HPI narrative: This is an 86 year old female with history of frequent UTIs who presents for evaluation of left lower abdominal pain. She states she developed sudden onset left flank pain 2 hours ago. She states her pain has been constant but it has improved. She reports the severe pain made her feel as if she was going to pass out. She denies having associated nausea, vomiting, fever or chills. She also denies gross hematuria, dysuria, cloudy urine or increased urinary frequency. She was in ER 1 month ago for abdominal pain, and she was diagnosed with a UTI. She completed 10 days of antibiotics. She has appointment with urology on Sunday for evaluation of frequent UTIs. Related Data Home Medications Medication Instructions Recorded Confirmed apixaban 5 mg tablet (Eliquis) 5 mg PO BID 04/08/19 03/29/22 carvedilol 3.125 mg tablet 3.125 mg PO Q12H 04/08/19 03/29/22 multivitamin 1 tablet PO DAILY 07/27/20 03/29/22 Allergies Allergy/AdvReac Type Severity Reaction Status Date / Time No Known Allergies Allergy Verified 04/16/22 16:12 Review of Systems Review of Systems: All systems reviewed & are unremarkable except as noted in HPI and below Constitutional: Constitutional: Denies chills, Denies fatigue and Denies fever(s) Cardiovascular: Cardiovascular: Denies chest pain and Denies radiating jaw, neck or arm pain Respiratory: Respiratory: Denies chest congestion, Denies cough and Denies dyspnea Gastrointestinal: Gastrointestinal: Reports abdominal pain, Denies nausea and Denies vomiting Genitourinary: Genitourinary: Denies hematuria, Denies nocturia, Denies dysuria and Reports flank pain Musculoskeletal: Musculoskeletal: Denies back pain PMFSH Past Medical History Medical History Arrhythmia Arthritis Chronic atrial fibrillation Chronic diarrhea Essential (primary) hypertension History of pulmonary embolism History of uterine fibroid Surgical History Surgical History History of appendectomy History of back surgery 2002 History of bilateral tubal ligation 1975 History of cholecystectomy History of dilation and curettage 09/13/20, with hysteroscopy and polypectomy History of endometrial ablation History of hernia repair History of hysteroscopy 09/13/20 History of knee replacement x3 History of removal of cyst History of rotator cuff surgery 1998 History of tubal ligation Status post laparoscopic-assisted sigmoidectomy 2019 Family History Family History Father Family history of malignant neoplasm, Onset Age: 57 Patient's father is Lung cancer Brain cancer Acute myocardial infarction Mother Depression Anxiety Other Family history of coronary artery disease Social History Social History Smoking status: Never smoker Second hand tobacco smoke exposure: No Alcohol intake: never Substance use: never Gender identity (if verbalized by the patient): Female Sexual Orientation (if Verbalized by the Patient): Straight or Heterosexual Spiritual care concerns: No Exam Const: General: no acute distress and alert Nutritional Appearance: well nourished Orientation/consciousness: patient oriented x3 HENMT: Head: normal to inspection Throat: posterior oropharynx normal Eyes: EOM: EOMs intact bilaterally Chest: Chest palpation & inspection: normal inspection of the chest Resp: Effort & Inspection: normal respiratory effort Auscultation: clear to auscultation bilaterally C
[2022-04-16 17:46] VITALS: BP 181/91; PULSE 88; RESP 18; O2SAT 96
[2022-04-16 18:32] VITALS: BP 185/90; PULSE 81; RESP 20; O2SAT 93
== END 2022-04-16 18:32 | disposition home or self-care (01) ==
PROVIDERS: Emergency Medicine; Emergency Provider General Practice; PCP Family Medicine
DX: N39.0 Urinary tract infection, site not specified (principal); I48.20 Chronic atrial fibrillation, unspecified; I10 Essential (primary) hypertension; M19.90 Unspecified osteoarthritis, unspecified site; Z86.711 Personal history of pulmonary embolism; Z96.659 Presence of unspecified artificial knee joint; Z79.01 Long term (current) use of anticoagulants
CPT/HCPCS: 36415; 74176; 80053; 81001; 83690; 85025; 87077; 87086; 87186; 96365; 96367; 99284; J0131; J0696

== ENCOUNTER 2022-04-28 08:26 | Outpatient (CLI) | payer MEDICARE, BC, SELFPAY ==
--- NOTE | 2022-04-28 11:30 | NEURO_ITS ---
IMPRESSION: # History of bilateral hand numbness. # Evidence of bilateral Carpal Tunnel Syndrome. # EMG/Needle exam normal. # Clinical correlation recommended. Motor Nerve Conduction Upper Extremities Median Nerve Conduction Velocity (m/sec) Terminal Latency (msec) Response Voltage(mV) Elbow-Wrist Wrist Elbow Wrist Right 36 4.7 1 3 Left 25 4.4 2 1 Ulnar Nerve Conduction Velocity (m/sec) Terminal Latency (msec) Response Voltage(mV) Above Elbow Below Elbow Wrist Above Elbow Below Elbow Wrist Right 52 49 2.8 4 4 4 Left 55 50 2.7 4 4 5 F-Wave Latency Median (ms) Ulnar (ms) Right 28.3 30.0 Left 29.9 28.8 Sensory Nerve Conduction Upper Extremities Median Nerve Stimulation Terminal Latency (msec) Wrist/Digit Response Voltage (uV) Wrist Right 4.7/4.6 12/7 Left 5.3/4.7 8/9 Ulnar Nerve Stimulation Terminal Latency (msec) Wrist/Digit Response Voltage (uV) Wrist Right 2.8 11 Left 2.9 17 Radial Nerve Terminal Latency (msec) Response Voltage(mV) Right 2.1 14 Left 2.2 17 Left Right Muscles Examined Fibrillation Fasciculation Scarcity Voltage Duration Left Right Left Right Left Right Left Right Left Right Deltoid Biceps X X Brachioradialis Triceps X X Pronator Teres X X Ext Indicis X X Ext Digitorum X X Abd Poll Brev X X 1st Dorsal Interosseus Paraspinals MTDD
== END 2022-04-28 08:27 | disposition home or self-care (01) ==
LOC: ANHNEURO 08:28
PROVIDERS: PCP Family Medicine; Visit Provider Family Medicine
DX: G56.00 Carpal tunnel syndrome, unspecified upper limb (principal); R20.0 Anesthesia of skin
CPT/HCPCS: 95886; 95911

== ENCOUNTER 2022-06-22 01:21 | Day surgery (SDC) | payer MEDICARE, BC, SELFPAY ==
[2022-06-07 15:16] VITALS: BMI 34.7
--- NOTE | 2022-06-07 15:23 | PC.NURSE ---
Report to the Outpatient Waiting Room, entrance under the green pavilion located off [facility], at time ___0600____ on date ___06/14/22____. Planned Procedure Time: _0730 . Time changes happen often and if your time is changed the preop area will call you the afternoon before. - You and your visitor will be asked to self-screen and do not enter if you have any COVID symptoms. - Only one visitor is requested with a max of two and NO children visitors are allowed at this time. - The patient visitor may be requested to leave or wait in car when not with patient due to distancing restrictions. - A mask is optional within the hospital. Patients may have clear liquids (water, carbonated beverages, clear teas, apple juice) until 3 hours prior to surgery (0430 AM) with a maximum of 20 ounces. - No food from midnight until time of surgery - Infants may have breast milk until 4 hours before surgery, infant formula 6 hours prior to surgery. - Children will be allowed to drink immediately following surgery. If applicable, please bring a bottle or sippy cup to assist with drinking. Juice, water, soda, and popsicles are readily available. For infants on formula, please bring formula the day of surgery. Pacifiers are allowed. Take the following medications with a SIP of water the morning of surgery: _CARVEDILOL, TYLENOL IF NEEDED___ Medications to discontinue per physician ____MULTIVITAMIN 3 DAYS PRIOR TO SURGERY PER ANESTHESIA ___ Date to take last dose____06/10/22 Please no make-up, nail uzbek, hairspray, perfume, deodorant, or body powder the day of surgery. No jewelry (including any body piercings) or valuables the day of surgery, leave them at home. Please take a shower or bath the night before, or the morning of, surgery with an antibacterial soap. Wear comfortable, loose fitting clothing. Children are encouraged to wear pajamas. - Jewelry must be removed prior to entering the operating room. Rings and piercings that are not removed may be cut off. - The hospital will not accept responsibility for valuables. - Please leave all valuables, including medications, at home the day of surgery. If you are going home after surgery, a licensed company tanker truck driver must drive you home. - NO public transportation without another adult if you receive anesthesia. - We recommend that an adult stay with you for 24 hours following discharge. - We also recommend that you do not drive, make important decision, drink alcoholic beverages, or take any drugs that were not prescribed by your health care provider for at least 24 hours after your discharge time. For Pediatric surgeries, we recommend two adults accompany the child home. Follow any additional instructions given to you from your surgeon. If you or anyone in your household have experienced Covid symptoms in the past week, please notify your surgeon or the nurse liaison at the phone number below for possible testing. Telephone instructions given to ____PATIENT and asked if any additional questions and then verbalized understanding. Patient advised to call surgeon office or pre surgery nurse liaison [phone] if any additional questions.
--- NOTE | 2022-06-15 14:53 | PC.NURSE ---
Report to the Outpatient Waiting Room, entrance under the green pavilion located off [facility], at time ___0600____ on date ___06/22/22____. Planned Procedure Time: __30 . Time changes happen often and if your time is changed the preop area will call you the afternoon before. - You and your visitor will be asked to self-screen and do not enter if you have any COVID symptoms. - Only one visitor is requested with a max of two and NO children visitors are allowed at this time. - The patient visitor may be requested to leave or wait in car when not with patient due to distancing restrictions. - A mask is optional within the hospital at this time. Patients may have clear liquids (water, carbonated beverages, clear teas, apple juice) until 3 hours prior to surgery (0430 AM )with a maximum of 20 ounces. - No food from midnight until time of surgery - Infants may have breast milk until 4 hours before surgery, formula 6 hours prior to surgery. - Children will be allowed to drink immediately following surgery. If applicable, please bring a bottle or sippy cup to assist with drinking. Juice, water, soda, and popsicles are readily available. For infants on formula, please bring formula the day of surgery. Pacifiers are allowed. Take the following medications with a SIP of water the morning of surgery: __CARVEDILOL, TYLENOL IF NEEDED__ DO NOT STOP ANY OF YOUR OTHER PRESCRIPTION MEDICATIONS PRIOR TO SURGERY ?EXCEPT THE FOLLOWING Medications to discontinue per ANESTHESIA - _MULTIVITAMIN 3 DAYS PRIOR TO SURGERY, Date to take last dose 06/18/22_ Please no make-up, nail english, hairspray, perfume, deodorant, or body powder the day of surgery. No jewelry (including any body piercings) or valuables the day of surgery, leave them at home. Please take a shower or bath the night before, or the morning of, surgery with an antibacterial soap. Wear comfortable, loose fitting clothing. Children are encouraged to wear pajamas. - Jewelry must be removed prior to entering the operating room. Rings and piercings that are not removed may be cut off. - The hospital will not accept responsibility for valuables. - Please leave all valuables, including medications, at home the day of surgery. If you are going home after surgery, a licensed compactor driver must drive you home. - NO public transportation without another adult if you receive anesthesia. - We recommend that an adult stay with you for 24 hours following discharge. - We also recommend that you do not drive, make important decision, drink alcoholic beverages, or take any drugs that were not prescribed by your health care provider for at least 24 hours after your discharge time. For Pediatric surgeries, we recommend two adults accompany the child home. Follow any additional instructions given to you from your surgeon. If you or anyone in your household have experienced Covid symptoms in the past week, please notify your surgeon or the nurse liaison at the phone number below for possible testing. Telephone instructions given to _PATIENT__and asked if any additional questions and then verbalized understanding. Patient advised to call surgeon office or pre surgery nurse liaison [phone] if any additional questions.
--- NOTE | 2022-06-21 10:51 | WPDANESEPPF ---
Anes - Initial Pre Proc Eval Procedure: Operation Date: 06/22/22 07:30 Proposed Procedures p Left Open Carpal Tunnel Release - Quinn Garrett MD Date/Time: 06/21/22 10:51 Surgeon: Quinn Garrett MD Pre Op Diagnosis: Left Carpal Tunnel Syndrome Patient Data Age: 87 Gender: F Height: 1.65 m Weight: 94.54 kg Allergies Allergy/AdvReac Type Severity Reaction Status Date / Time No Known Allergies Allergy Verified 06/07/22 15:13 Home Medications Medication Instructions Recorded Confirmed Type apixaban 5 mg tablet (Eliquis) 5 mg PO BID 04/08/19 06/07/22 History carvedilol 3.125 mg tablet 3.125 mg PO Q12H 04/08/19 06/07/22 History multivitamin 1 tablet PO DAILY 07/27/20 06/07/22 History furosemide 20 mg tablet 10 mg PO QAM #30 tabs 10/28/20 06/07/22 Rx potassium chloride 8 mEq 8 meq PO BID #180 tabs 01/02/22 06/07/22 Rx tablet,extended release nitrofurantoin 100 mg PO Q12H 7 days #14 caps 04/16/22 06/07/22 Rx monohydrate/macrocrystals 100 mg capsule (Macrobid) acetaminophen 300 mg-codeine 30 mg 1 tablet PO Q12H PRN pain #60 tabs 05/31/22 06/07/22 Rx tablet Patient hx anesthesia problems: none Family hx anesthesia problems: none Results Review: All pre-operative results and documents have been reviewed as part of the pre-operative evaluation. [facility] Past Medical History Medical History Arrhythmia Arthritis Chronic atrial fibrillation Chronic diarrhea Essential (primary) hypertension History of pulmonary embolism History of uterine fibroid Surgical History Surgical History History of appendectomy History of back surgery 2002 History of bilateral tubal ligation 1976 History of cholecystectomy History of dilation and curettage 09/13/20, with hysteroscopy and polypectomy History of endometrial ablation History of hernia repair History of hysteroscopy 09/13/20 History of knee replacement x3 History of removal of cyst History of rotator cuff surgery 1998 History of tubal ligation Status post laparoscopic-assisted sigmoidectomy 2019 Family History Family History Father Family history of malignant neoplasm, Onset Age: 57 Patient's father is Lung cancer Brain cancer Acute myocardial infarction Mother Depression Anxiety Other Family history of coronary artery disease Social History Social History Smoking status: Never smoker Second hand tobacco smoke exposure: No Alcohol intake: never Substance use: never Substance use type: does not use Living arrangements: with family Occupation/Education: retired Gender identity (if verbalized by the patient): Female Sexual Orientation (if Verbalized by the Patient): Straight or Heterosexual Spiritual care concerns: No Anes - Eval Final PreProcedure Day of Procedure 06/21/22 10:51 Patient weight: obese Heart: regular rate and rhythm Lungs: clear to auscultation Airway: Mallampati scale class II Neurological: alert and oriented Last oral intake: >/= 8 hours ASA classification: III Emergent: no Anesthetic plan: proceed Anesthesia type and monitoring: general GIVS and standard monitoring Results Review: All pre-operative results and documents have been reviewed as part of the pre-operative evaluation. Informed Consent: The patient's anesthetic plan and its attendant risks and benefits were discussed with the patient/family/POA. Questions were solicited and answers provided to the satisfaction of the patient/family/POA.
[2022-06-22 06:50] VITALS: BP 143/96; PULSE 84; RESP 14; TEMP 36.4; O2SAT 100
[2022-06-22] MEDS: LACTATED RINGERS 1,000 ML 30 ML IV CONT (06:55)
--- NOTE | 2022-06-22 07:18 | WPDHPUPDATE1 ---
History and Physical Update Update Date/Time: 06/22/22 07:18 History and Physical has been reviewed, including an updated exam of the patient. There are NO changes in the patient's condition. Risks, benefits, and alternatives have been discussed and questions answered. Patient agrees to proceed with procedure.
[2022-06-22 08:00] VITALS: BP 125/74; PULSE 89; RESP 12; O2SAT 98
--- NOTE | 2022-06-22 08:03 | P.OP_ITS ---
Procedure Note - Detailed Date of Procedure 06/22/22 Pre-op Diagnosis Left Carpal Tunnel Syndrome Post-op Diagnosis Same Procedure Performed Left open carpal tunnel release Surgeon Quinn Garrett MD Anesthesia MAC Description of Procedure The left carpal tunnel site was marked on the patient with her consent in the holding area. Hot Box Spotter taken to the operating room and placed supine on table. She was given IV sedation as the left upper extremity was prepped and draped in usual fashion. A time-out was held and confirmed. The site was locally infiltrated with 1% lidocaine with epinephrine. The extremity was exsanguinated and the tourniquet inflated to 250 mmHg arm. The incision was made in the palm as marked. Dissection through the subcutaneous tissue revealed the palmar fascia. This was incised with scissors revealing carpal retinaculum. This was incised with a 15. Blade opening the canal. Under direct vision the ligament was divided distally and proximally to completely release it. There was no unusual anatomy noted. The skin was closed with interrupted 5 0 nylon. The at the tourniquet was released the usual bandage applied after she was discharged in stable condition. Estimated Blood Loss 0 Drains No Packing No Pathology None sent Complications No immediate complications Condition Stable Disposition Same day
[2022-06-22 08:33] VITALS: BP 158/97; PULSE 86; RESP 16
== END 2022-06-22 09:15 | disposition home or self-care (01) ==
PROVIDERS: PCP Family Medicine; Visit Provider Plastic Surgery
PROC: (CPT 64721; principal; 2022-06-22 07:30)
DX: G56.02 Carpal tunnel syndrome, left upper limb (principal); I48.20 Chronic atrial fibrillation, unspecified; I10 Essential (primary) hypertension; Z79.01 Long term (current) use of anticoagulants; Z86.711 Personal history of pulmonary embolism; E66.9 Obesity, unspecified; Z68.32 Body mass index [BMI] 32.0-32.9, adult
CPT/HCPCS: 64721; A9270; J2704; J3010; J7120

== ENCOUNTER → 2022-07-27 10:45 | Outpatient (CLI) | payer MEDICARE, BC, SELFPAY ==
--- NOTE | ~2022-07-27 | XR_ITS ---
AP and lateral views of the left hip Clinical history: Pain Findings: No acute fracture or dislocation is seen. Osseous alignment is anatomic. Moderate degenerat sydney change of the left hip joint noted. Soft tissues are unremarkable. 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 No fracture or dislocation seen. Reviewed, dictated and finalized at [facility]. 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 No fracture or dislocation seen.
== END ==
PROVIDERS: PCP Family Medicine; Visit Provider Family Medicine
DX: M16.12 Unilateral primary osteoarthritis, left hip (principal)
CPT/HCPCS: 73502

== ENCOUNTER 2022-11-03 18:18 | Emergency (ER) | payer MEDICARE, BC, SELFPAY ==
--- NOTE | ~2022-11-03 | CT_ITS ---
EXAMINATION: CT abdomen pelvis w con DATE: 11/03/2022 21:16 INDICATION: R abd pain, h/o colon perf TECHNIQUE: Computed tomography (CT) of the abdomen and pelvis was performed with 100 mL Omnipaque-350 intravenous contrast. Automated exposure control and iterative reconstruction technique were employe d. The dose-length product was 1294.37 mGy-cm. COMPARISON: None. FINDINGS: Lower thorax: Cardiomegaly. Small volume pericardial fluid. Aortic and coronary artery calcification Liver: 9 mm hyperenhancing focus in the liver dome, likely flash filling hemangioma. Biliary/Gallbladder: Gallbladder is absent. Stable intra and extrahepatic bile duct dilation, likely secondary to cholecystectomy. Pancreas: Atrophy Spleen: Normal. Adrenals:Stable bilateral adrenal adenomas Kidneys: Simple right upper pole cyst. No suspicious mass, stone, or hydronephrosis. GI tract: Small hiatal hernia. Moderate distal esophageal and gastric wall edema. No small or large b owel dilation. Uncomplicated rectosigmoid anastomosis. Appendix not visualized. Mesentery/Peritoneum: No ascites, mass, or free air. Retroperitoneum: No mass. Atherosclerotic abdominal aortic and/or arterial calcifications. Pelvis: Normal urinary bladder. Multiple uterine fibroids and endometrial thickening. Soft Tissues: Small uncomplicated fat-containing ventral/periumbilical and bilateral inguinal hernias . Bones: No acute osseous finding. Uncomplicated posterior lumbar fusion hardware. IMPRESSION: Cardiomegaly, with stable small pericardial effusion. Moderate esophagitis/gastritis. Uterine fibroid s. Endometrial thickening. Reviewed, dictated and finalized at location K. IMPRESSION: Cardiomegaly, with stable small pericardial effusion. Moderate esophagitis/krish ritis. Uterine fibroids. Endometrial thickening.
[2022-11-03 18:51] VITALS: BP 138/83; PULSE 80; RESP 16; TEMP 36.5; O2SAT 96
[2022-11-03 19:19] LABS: Basophils Percent Auto 0.5 % (0.2-1.2); Eosinophils Absolute Auto 0.1 K/mm3 (0-0.3); Eosinophils Percent Auto 2.3 % (0-4.4); Hematocrit 43.6 % (37.0-47.0); Hemoglobin 14.4 g/dL (12.0-15.0); Immature Granulocyte Absolute 0.01 K/mm3 (0.00-0.031); Immature Granulocyte Percent A 0.2 % (0-0.5); Lymphocytes Absolute Auto 1.72 K/mm3 (0.9-3.2); Lymphocytes Percent Auto 29.9 % (18.3-44.2); Mean Corpuscular Hemoglobin 31.3 pg (26-34); Mean Corpuscular Volume 94.8 fl (80-100); Mean Platelet Volume 10.5 fl (7.4-10.4); Monocytes Absolute Auto 0.5 K/mm3 (0.1-0.6); Monocytes Percent Auto 8.7 % (2.6-8.5); Neutrophils Absolute Auto 3.4 K/mm3 (1.3-6.7); Neutrophils Percent Auto 58.4 % (45.5-73.1); Platelet Count Result 226 k/mm3 (150-375); Red Cell Distribution Width 13.8 % (11.5-14.5); White Blood Count 5.8 K/mm3 (4.5-10.0)
[2022-11-03 19:34] LABS: Alanine Aminotransferase 18 U/L (6-35); Albumin Level 4.2 g/dL (3.5-5.1); Alkaline Phosphatase 113 U/L (38-126); Anion Gap 9 mmol/L (8-16); Aspartate Amino Transferase 26 U/L (14-36); Bilirubin,Total 0.8 mg/dL (0.2-1.3); Blood Urea Nitrogen 25 mg/dL (7-17); Calcium 9.5 mg/dL (8.4-10.2); Carbon Dioxide 33 mmol/L (22-30); Chloride 100 mmol/L (98-107); Estimated CRCL calculation 51 ml/min; Estimated Glomerular Filt Rate > 60; Glucose 107 mg/dL (65-110); Lipase 69 U/L (23-300); Potassium 3.4 mmol/L (3.4-5.0); Sodium 142 mmol/L (137-145)
[2022-11-03 20:28] VITALS: BP 122/76; PULSE 84; RESP 16; TEMP 36.5; O2SAT 98
--- NOTE | 2022-11-03 20:46 | ED.GENADULT ---
HPI - General Adult General Chief complaint: Abdominal Pain Stated complaint: right sided abdominal pain x 1 week Time Seen by Provider: 11/03/22 20:33 Source: patient Mode of arrival: ambulatory Limitations: no limitations History of Present Illness HPI narrative: This is a 87-year-old female with PMH of PE, A-fib who presents to the ED with chief complaint of right-sided abdominal pain beginning 2 weeks ago. Patient states it is more constant today. Reports it has been generalized in nature, sometimes on the left but has been more right-sided over the past 2 days. She is concerned for a UTI. She denies any urinary frequency, hematuria, dysuria states she has had multiple UTIs in the past. Reports pain at a 4 out of 10. Denies fevers, chills, nausea, vomiting, diarrhea, constipation, chest pain, shortness of breath, cough. Reports past surgical history of appendectomy, cholecystectomy, Related Data Home Medications Medication Instructions Recorded Confirmed apixaban 5 mg tablet (Eliquis) 5 mg PO BID 04/08/19 07/26/22 carvedilol 3.125 mg tablet 3.125 mg PO Q12H 04/08/19 07/26/22 multivitamin 1 tablet PO DAILY 07/27/20 07/26/22 Allergies Allergy/AdvReac Type Severity Reaction Status Date / Time No Known Allergies Allergy Verified 11/03/22 18:19 Review of Systems Review of Systems: CONSTITUTIONAL: Denies fever, chills, or sweats. EYES: Denies visual changes, redness, or discharge. ENT: Denies rhinorrhea, congestion, sore throat, or otalgia. CARDIOVASCULAR: Denies chest pain, palpitations, or edema. RESPIRATORY: Denies cough or dyspnea. GASTROINTESTINAL: See HPI GENITOURINARY: Denies dysuria or hematuria. SKIN: Denies rash or itching. MUSCULOSKELETAL: Denies back pain, joint pain, or myalgia. NEUROLOGIC: Denies headache, numbness, dizziness, or weakness. PSYCHIATRIC: Denies anxiety or depression. ON LICENSE OF [facility] Past Medical History Medical History (Updated 11/04/22 @ 00:00 by Monica Daemon) Arrhythmia Arthritis Chronic atrial fibrillation Chronic diarrhea Essential (primary) hypertension History of pulmonary embolism History of uterine fibroid Surgical History Surgical History (Updated 08/16/22 @ 08:01 by Rosemary Holbrook PA-C) History of appendectomy History of back surgery 2002 History of bilateral tubal ligation 1976 History of cholecystectomy History of dilation and curettage 09/13/20, with hysteroscopy and polypectomy History of endometrial ablation History of hernia repair History of hysteroscopy 09/13/20 History of knee replacement x3 History of removal of cyst History of rotator cuff surgery 1998 History of tubal ligation S/P carpal tunnel release L-side Status post laparoscopic-assisted sigmoidectomy 2019 Family History Family History Father Family history of malignant neoplasm, Onset Age: 57 Patient's father is Lung cancer Brain cancer Acute myocardial infarction Mother Depression Anxiety Other Family history of coronary artery disease Social History Social History Smoking status: Never smoker Second hand tobacco smoke exposure: No Alcohol intake: never Substance use: never Substance use type: does not use Living arrangements: with family Occupation/Education: retired Gender identity (if verbalized by the patient): Female Sexual Orientation (if Verbalized by the Patient): Straight or Heterosexual Spiritual care concerns: No Exam Narrative: GENERAL: Well-appearing, well-nourished, and in no acute distress. HEAD: Normocephalic, atraumatic. EYES: PERRLA and EOMI. ENT: Nares clear, no rhinorrhea or epistaxis. Mucous membranes moist. Oropharynx without tonsillar hypertrophy exudate or other lesions. NECK: Supple. No adenopathy or masses. CHEST: No respiratory distress. Clear to auscultation. No wheez
[2022-11-03 21:45] VITALS: BP 145/85; PULSE 75; RESP 16; O2SAT 100
[2022-11-03 22:30] VITALS: BP 139/92; PULSE 70; RESP 16; O2SAT 97
[2022-11-03 23:18] LABS: Appearance Urine Clear (Clear); Bilirubin Urine Negative (Negative); Blood Urine Negative (Negative); Color Urine Yellow (Yellow); Glucose Urine UA Negative (Negative); Ketones Urine Negative (Negative); Leukocyte Esterase Ur Negative LEU/UL (Negative); Nitrate Urine Negative (Negative); Protein Urine Negative (Negative); Specific Grav Ur 1.026 (1.001-1.035)
[2022-11-03 23:34] LABS: Add Urine Microscopic? NO
[2022-11-03 23:57] VITALS: BP 159/108; PULSE 79; RESP 20; O2SAT 100
== END 2022-11-03 23:58 | disposition home or self-care (01) ==
PROVIDERS: Emergency Medicine; Emergency Provider Physician Assistant; PCP Family Medicine
DX: R10.9 Unspecified abdominal pain (principal); I48.20 Chronic atrial fibrillation, unspecified; I10 Essential (primary) hypertension; M19.90 Unspecified osteoarthritis, unspecified site; Z86.711 Personal history of pulmonary embolism; Z90.710 Acquired absence of both cervix and uterus; Z96.659 Presence of unspecified artificial knee joint; Z79.01 Long term (current) use of anticoagulants
CPT/HCPCS: 36415; 74177; 80053; 81003; 83690; 85025; 99284; Q9967

== ENCOUNTER 2023-02-12 14:05 | Outpatient (CLI) | payer MEDICARE, BC, SELFPAY ==
--- NOTE | ~2023-02-12 | US_ITS ---
US soft tissue LE RT 02/12/2023 14:49 Indication: Localized swelling right lower extremity Procedure: High-resolution Limited ultrasound of the right medial calf Comparison: No prior studies for comparison. Findings: Diffuse interstitial edema is identified in the area of swelling. No discrete walled off fl uid collection or abscess identified. Impression: 1: Diffuse interstitial edema the right medial calf in the area of swelling. No discrete mass or flui d collection. Reviewed, dictated and finalized at location L. Impression: 1: Diffuse interstitial edema the right medial calf in the area of swelling. No discrete mass or fluid collection.
== END 2023-02-12 14:06 | disposition home or self-care (01) ==
PROVIDERS: PCP Family Medicine; Visit Provider Family Medicine
DX: R22.41 Localized swelling, mass and lump, right lower limb (principal)
CPT/HCPCS: 76882

== ENCOUNTER 2023-08-08 11:49 | Outpatient (CLI) | payer MEDICARE, BC, SELFPAY ==
[2023-08-08 12:49] LABS: Appearance Urine Cloudy (Clear); Bacteria Urine Rare /hpf; Bilirubin Urine Negative (Negative); Blood Urine Negative (Negative); Color Urine Dark Yellow (Yellow); Glucose Urine UA Negative (Negative); Ketones Urine Trace mg/dL (Negative); Leukocyte Esterase Ur 1+ LEU/UL (Negative); Nitrate Urine Negative (Negative); Non Pathogenic Casts 0-2; Protein Urine Negative (Negative); Specific Grav Ur 1.025 (1.001-1.035); Squamous Epithelial Cell Urine Few /hpf (Few)
[2023-08-08 12:56] LABS: Add Urine Microscopic? YES
== END 2023-08-08 11:50 | disposition home or self-care (01) ==
LOC: ANHLAB 11:51
PROVIDERS: PCP Family Medicine; Visit Provider Family Medicine
DX: N39.0 Urinary tract infection, site not specified (principal)
CPT/HCPCS: 87086; 87088

== ENCOUNTER 2024-01-27 21:24 | Emergency (ER) | payer MEDICARE, BC, SELFPAY ==
--- NOTE | ~2024-01-27 | XR_ITS ---
AP and oblique views of the left ribs, an AP radiograph of the chest. Clinical History: Pain Findings: No rib fracture is seen. Osseous alignment is anatomic. Lungs are clear, without focal cons olidation or pleural effusion. Cardiomediastinal contour is enlarged. Soft tissues are unremarkable. Impression: No rib fracture is seen. Clear lungs. Cardiomegaly. Reviewed, dictated and finalized at location . Impression: No rib fracture is seen. Clear lungs. Cardiomegaly.
--- NOTE | ~2024-01-27 | CT_ITS ---
CT of the Abdomen and Pelvis: Indication: Abdominal pain Technique: 2.5 mm axial scans were obtained through the abdomen and pelvis following intravenous adm inistration of 100 cc of Omnipaque 350. Dose reduction technique was used on this scan by utilizing a utomated exposure control and iterative reconstruction technique. The dose-length product (DLP) was 1 173.35 mGy-cm. COMPARISON: 11/03/2022 Findings: Scans through the lung bases demonstrate cardiomegaly. Intrahepatic and extrahepatic biliary dilatation is stable from prior exam, presumably related to nara or cholecystectomy. The spleen, pancreas, and kidneys are within normal limits. There is stable bilat eral adrenal nodules, suggestive of bilateral adenomas given stability. There are atherosclerotic balbina cifications of the aorta. No lymphadenopathy. No bowel obstruction or bowel wall thickening. Rectosigmoid anastomosis noted. Small fat-containing u mbilical hernia noted. Images through the pelvis were performed. Urinary bladder unremarkable. Uterine fibroids are present. There is degenerative spondylosis of the lumbar spine with posterior fusion from L3 through L5. Impression: Small fat-containing umbilical hernia. Uterine fibroids. Bilateral presumed adrenal adenomas, unchanged. Postoperative changes, as noted above. Reviewed, dictated and finalized at location . Impression: Small fat-containing umbilical hernia. Uterine fibroids. Bilateral presumed adrenal adenomas, unchanged. Postoperative changes, as noted above.
[2024-01-27 21:32] VITALS: BP 155/108; PULSE 87; RESP 18; TEMP 36.8; O2SAT 98
[2024-01-27] MEDS: ONDANSETRON HCL ODT 4 MG TABLET PO (21:52)
[2024-01-27] MEDS: ACETAMINOPHEN 325 MG TABLET 650 MG PO (21:53)
[2024-01-27] MEDS: LIDOCAINE 5% PATCH 1 PATCH TRANSDERM (21:53)
--- NOTE | 2024-01-27 22:53 | ECG_ITS ---
Test Date: 2024-01-27 23:30:07 Measurements Intervals Pep Rate: 86 P: 0 NC: 0 QRS: -7 QRSD: 90 T: 14 QT: 378 QTc: 452 Interpretive Statements ATRIAL FIBRILLATION DELAYED PRECORDIAL R/S TRANSITION CONSIDER INFERIOR INFARCT, AGE INDETERMINATE BASELINE ARTIFACT- I, II, III, AVR, AVL ABNORMAL ECG No previous ECG available for comparison Electronically Signed On 01-28-2024 06:31:00 CDT by Chip Culp D.O.
[2024-01-27] MEDS: METOCLOPRAMIDE HCL INJ 10 MG/2 ML VIAL IM (22:58)
[2024-01-27 22:59] VITALS: BP 156/98; PULSE 84; RESP 15; O2SAT 97
--- NOTE | 2024-01-27 23:37 | ED.GENADULT ---
HPI - General Adult General Chief complaint: Abdominal Pain Stated complaint: back pain Time Seen by Provider: 01/27/24 21:33 History of Present Illness HPI narrative: Patient presents here with sudden onset left rib pain that started after she twisted in the chair. Pain is making her feel slightly nauseous Related Data Home Medications Medication Instructions Recorded Confirmed apixaban 5 mg tablet (Eliquis) 5 mg PO BID 04/08/19 08/08/23 carvedilol 3.125 mg tablet 3.125 mg PO Q12H 04/08/19 08/08/23 multivitamin 1 tablet PO DAILY 07/27/20 08/08/23 Allergies Allergy/AdvReac Type Severity Reaction Status Date / Time No Known Allergies Allergy Verified 01/27/24 21:43 Review of Systems Review of Systems: All systems reviewed & are unremarkable except as noted in HPI and below PMFSH Past Medical History Medical History (Updated 01/28/24 @ 03:22 by Tania Estrella MD) Arrhythmia Arthritis Chronic acquired lymphedema Chronic atrial fibrillation Chronic diarrhea Essential (primary) hypertension History of pulmonary embolism History of uterine fibroid Surgical History Surgical History (Updated 08/16/22 @ 08:01 by Rosemary Holbrook, PASimoneC) History of appendectomy History of back surgery 2002 History of bilateral tubal ligation 1976 History of cholecystectomy History of dilation and curettage 09/13/20, with hysteroscopy and polypectomy History of endometrial ablation History of hernia repair History of hysteroscopy 09/13/20 History of knee replacement x3 History of removal of cyst History of rotator cuff surgery 1998 History of tubal ligation S/P carpal tunnel release L-side Status post laparoscopic-assisted sigmoidectomy 2019 Family History Family History Father Family history of malignant neoplasm, Onset Age: 57 Patient's father is Lung cancer Brain cancer Acute myocardial infarction Mother Depression Anxiety Other Family history of coronary artery disease Social History Social History Smoking status: Never smoker Second hand tobacco smoke exposure: No Alcohol intake: never Substance use: never Substance use type: does not use Living arrangements: with family Occupation/Education: retired Gender identity (if verbalized by the patient): Female Sexual Orientation (if Verbalized by the Patient): Straight or Heterosexual Spiritual care concerns: No Exam Narrative: EXAMINATION OF ORGAN SYSTEMS/BODY AREAS: Constitutional: Vital signs per nursing GENERAL: Appears slightly uncomfortable in the bed HEAD: Normal with no signs of head trauma. EYES: EOMI, conjunctiva normal ENT: Hearing grossly intact LUNGS: Nonlabored breathing. Clear to auscultation bilaterally HEART: [Regular rate and rhythm] ABD: [Soft], some tenderness to palpation to the left lower lateral rib EXT: Normal range of motion SKIN: [No rashes or lesions.] NEURO: [Alert and oriented x 3. No gross focal sensory or strength deficits.] PSYCH: Normal affect Course Vital Signs Vital signs: Vital Signs Temperature 98.2 F 01/27/24 21:32 Pulse Rate 87 01/27/24 21:32 Respiratory Rate 18 01/27/24 21:32 Blood Pressure 155/108 H 01/27/24 21:32 Pulse Oximetry 98 01/27/24 21:32 Oxygen Delivery Room Air 01/27/24 21:32 Temperature 98.2 F 01/27/24 21:32 Pulse Rate 85 01/28/24 03:01 Respiratory Rate 15 01/28/24 03:01 Blood Pressure 156/102 H 01/28/24 03:01 Pulse Oximetry 96 01/28/24 03:01 Oxygen Delivery Room Air 01/27/24 21:32 Medical Decision Making MDM Narrative Medical decision making narrative: Patient presents here with left-sided rib pain after twisting, on exam she appears slightly uncomfortable, there is tenderness to palpation to the left lateral lower rib, no abdominal tenderness, no shortness of yakov
[2024-01-28 00:21] LABS: Basophils Percent Auto 0.4 % (0.2-1.2); Eosinophils Percent Auto 0.4 % (0-4.4); Hematocrit 44.7 % (37.0-47.0); Hemoglobin 14.9 g/dL (12.0-15.0); Immature Granulocyte Absolute 0.03 K/mm3 (0.00-0.031); Immature Granulocyte Percent A 0.4 % (0-0.5); Lymphocytes Absolute Auto 1.02 K/mm3 (0.9-3.2); Lymphocytes Percent Auto 13.2 % (18.3-44.2); Mean Corpuscular HGB Conc 33.3 g/dl (32-36); Mean Corpuscular Hemoglobin 31.6 pg (26-34); Mean Corpuscular Volume 94.7 fl (80-100); Mean Platelet Volume 10.4 fl (7.4-10.4); Monocytes Absolute Auto 0.3 K/mm3 (0.1-0.6); Monocytes Percent Auto 3.9 % (2.6-8.5); Neutrophils Absolute Auto 6.3 K/mm3 (1.3-6.7); Neutrophils Percent Auto 81.7 % (45.5-73.1); Platelet Count Result 221 k/mm3 (150-375); Red Blood Count 4.72 M/mm3 (4.2-5.4); Red Cell Distribution Width 14.4 % (11.5-14.5); White Blood Count 7.7 K/mm3 (4.5-10.0)
[2024-01-28 00:32] LABS: Alanine Aminotransferase 18 U/L (6-35); Albumin Level 4.3 g/dL (3.5-5.1); Alkaline Phosphatase 126 U/L (38-126); Anion Gap 9 mmol/L (4-12); Aspartate Amino Transferase 28 U/L (14-36); Blood Urea Nitrogen 21 mg/dL (7-17); Calcium 9.5 mg/dL (8.4-10.2); Carbon Dioxide 28 mmol/L (22-30); Chloride 101 mmol/L (98-107); Estimated CRCL calculation 55 ml/min; Estimated Glomerular Filt Rate > 60; Glucose 148 mg/dL (65-110); Potassium 3.5 mmol/L (3.4-5.0); Sodium 138 mmol/L (137-145)
[2024-01-28 03:01] VITALS: BP 156/102; PULSE 85; RESP 15; O2SAT 96
[2024-01-28] MEDS: MAG HYDROX/AL HYDROX/SIMETH 30 ML UDC PO (03:37)
[2024-01-28] MEDS: PANTOPRAZOLE SODIUM IV 40 MG VIAL IV PUSH (03:37)
[2024-01-28] MEDS: FAMOTIDINE 20 MG/2 ML VIAL IV PUSH (03:40)
[2024-01-28 03:51] VITALS: BP 142/100; PULSE 81; RESP 15; O2SAT 97
== END 2024-01-28 03:52 | disposition home or self-care (01) ==
PROVIDERS: Emergency Provider Emergency Medicine; PCP Family Medicine
DX: R07.89 Other chest pain (principal); R11.2 Nausea with vomiting, unspecified; R10.9 Unspecified abdominal pain; M19.90 Unspecified osteoarthritis, unspecified site; I48.91 Unspecified atrial fibrillation; I10 Essential (primary) hypertension; Z86.711 Personal history of pulmonary embolism; Z79.01 Long term (current) use of anticoagulants
CPT/HCPCS: 36415; 71101; 74177; 80053; 85025; 93005; 96372; 96374; 96375; 99284; A9270; J2470; J2765; Q9967

== ENCOUNTER 2024-02-07 07:21 | Outpatient (CLI) | payer MEDICARE, BC, SELFPAY ==
[2024-02-07 19:05] LABS: Cholesterol 196 mg/dL (0-200); HDL Direct 68 mg/dL; Triglycerides 86 mg/dL (<150)
[2024-02-07 19:16] LABS: LDL Cholesterol Direct 95 mg/dL
== END 2024-02-07 07:22 | disposition home or self-care (01) ==
PROVIDERS: PCP Family Medicine; Visit Provider Family Medicine
DX: R53.83 Other fatigue (principal); I10 Essential (primary) hypertension; E78.5 Hyperlipidemia, unspecified
CPT/HCPCS: 36415; 80061; 84443

== ENCOUNTER 2024-07-29 12:13 | Outpatient (CLI) | payer MEDICARE, BC, SELFPAY ==
--- OUTSIDE RECORDS SUMMARY | 2024-07-29 13:37 | XMS_ITS | Referral Summary ---
Author Organization [facility] [place] [address] Address [address] [place] [address] Care Team Providers Care Machine Stripper Name Role Phone Chacorta Sanchez MD Primary Care Provider Allergies No known active allergies Medications acetaminophen-c odeine (TYLENOL-CODEIN E #3) 300-30 mg per tablet take 1 tablet by oral route every 6 hours as needed 0 0 4 Active multivitamin tablet tablet take 1 tablet by oral route every day with food 0 0 5 Active Additional Information Patient not taking.Reported on 01/11/2024 potassium chloride ER (potassium chloride ER) 8 mEq CR capsule Take 1 tablet/capsule (8 mEq total) by mouth 2 (two) times a day. 60 tablet/capsu le 11 8 Active nitrofurantoin (MACRODANTIN) 50 mg capsule Take 1 capsule (50 mg total) by mouth nightly 2 Active furosemide (LASIX) 20 mg tablet Take 3 tablets (60 mg total) by mouth daily 270 tablet 3 3 01/11/20 25 Active glucosamine/cho ndr de la garza A sod (OSTEO BI-FLEX ORAL) Take by mouth Active TURMERIC ROOT EXTRACT ORAL Take 400 mg by mouth Active carvediloL (COREG) 3.125 mg tablet Take 1 tablet (3.125 mg total) by mouth 2 (two) times a day with meals 180 tablet 3 4 Active apixaban (Eliquis) 5 mg tablet Take 1 tablet (5 mg total) by mouth 2 (two) times a day 180 tablet 3 Active Active Problems Problem Noted Date Diagnosed Date Chronic heart failure with preserved ejection fr action 10/03/2022 Mixed hyperlipidemia 10/13/2021 Medication side effects 10/13/2021 Chronic fatigue 10/13/2021 Longstanding persistent atrial fibrillation (CMS /HCC) 07/30/2020 Localized edema 05/02/2018 Morbid obesity with BMI of 40.0-44.9, adult 05/23 History of recent fall 11/01/2016 Chronic anticoagulation 11/01/2016 Obesity with body mass index 30 or greater 11/08 Overview (08/25/2016): Obesity (BMI 35.0-39.9 without comorbidity) Chest pain 04/26/2015 Overview (08/25/2016): Chest pain, unspecified chest pain type Class 2 severe obesity due t o excess calories with serious comorbidity and body mass index (BMI) of 37.0 to 37.9 in adult 04/26/2015 Overview (08/25/2016): Morbid obesity due to excess calories Benign hypertension 03/18/2014 Overview (08/25/2016): HTN (hypertension), benign Resolved Problems Problem Noted Date Diagnosed Date Resolved Date Edema 04/26/2015 07/10/2023 Overview (08/25/2016): Edema, due to unspecified malnutrition type, unspecified type Dyslipidemia 04/26/2015 10/13/2021 Overview (08/25/2016): Dyslipidemia History of anticoagulant therapy 03/18/2014 10/13/2021 Overview (08/25/2016): Chronic anticoagulation Paroxysmal atrial fibrillation 03/18/2014 07/30/2020 Overview (08/25/2016): Paroxysmal atrial fibrillation Social History Tobacco Use Types Packs/Day Years Used Date Smoking Tobacco: Never Smokeless Tobacco: Never Alcohol Use Standard Drinks/Week Comments No 0 (1 standard drink = 0.6 oz pur e alcohol) Comments Unknown Sex and Gender Information Value Date Recorded Sex Assigned at Not on file Legal Sex Female 9:49 AM SALES FACILITATOR Gender Identity Not on file Sexual Orientation Not on file Last Filed Vital Signs Vital Sign Reading Time Taken Comments Blood Pressure 118/72 01/11/2024 10:01 AM CDT Pulse 78 01/11/2024 10:01 AM CDT Temperature - - Respiratory Rate 16 01/11/2024 10:01 AM CDT Oxygen Saturation 97% 07/10/2023 11:39 AM SALES FACILITATOR Inhaled Oxygen Concentration - - Weight 101.2 kg (223 lb) 01/11/2024 10:01 AM CDT Height 162.6 cm (5' 4 ) 01/11/2024 10:01 AM CDT Body Mass Index 38.28 01/11/2024 10:01 AM CDT Plan of Treatment Not on file Insurance MEDICARE [facility] MEDICARE TRADITIONAL OOS MEDICARE Care Teams Machine Stripper Relationship Specialty Start Date End Date Chacorta Sanchez MD [address] [facility] [address] [place] [address] PCP - General Family Medicine 11/01/16
--- OUTSIDE RECORDS SUMMARY | 2024-07-29 13:37 | XMS_ITS | Clinical Summary ---
Author Organization [facility] [address] Address [address] [place] [address] Care Team Providers Care Fish Stringer Assembler Name Role Phone Chacorta Sanchez MD Primary [...] (two) times a day 180 tablet 3 4 Active Active Problems Problem Noted Date Diagnosed [...] 03/18/2014 07/30/2020 Overview (08/25/2016): Paroxysmal atrial fibrillation Medical History Medical History Date Comments Hypertension Atrial fibrillation (HCC) Family History Medical History Relation Name Comments Alzheimer's disease Brother Alzheime r's disease; Brain cancer Father Cancer, brain; Lung cancer Father Cancer, lung; Relation Name Status Comments Brother Father Social History Tobacco Use Types Packs/Day Years Used Date Smoking Tobacco: Never Smokeless Tobacco: Never Alcohol Use Standard Drinks/Week Comments No 0 (1 standard drink = 0.6 oz pur e alcohol) Comments Unknown Sex and Gender Information Value Date Recorded Sex Assigned at Not on file Legal Sex Female 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 FOLDER SEAMER Gender Identity Not on file Sexual Orientation Not on file Obstetrics History Last Filed Vital Signs Vital Sign Reading Time Taken Comments Blood Pressure 118/72 01/11/2024 10:01 AM CDT Pulse 78 01/11/2024 10:01 AM CDT Temperature - - Respiratory Rate 16 01/11/2024 10:01 AM CDT Oxygen Saturation 97% 07/10/2023 11:39 AM FOLDER SEAMER Inhaled Oxygen Concentration - - Weight 101.2 kg (223 lb) 01/11/2024 10:01 AM CDT Height 162.6 cm (5' 4 ) 01/11/2024 10:01 AM CDT Body Mass Index 38.28 01/11/2024 10:01 AM CDT Plan of Treatment Health Maintenance Due Date Last Done Comments Depression Screening 1935 Fall Risk Assessment 1935 DTaP/Tdap/Td Vaccine (1 - Tdap) 1948 Hepatitis B Screening 1953 Well Visit 65+ 2002 Zoster Vaccine (2 of 3) 10/19/2016 08/24/2016 Pneumococcal vaccine 65+ (2 of 2 - PPSV23) 02/28/2018 01/03/2018 Influenza Vaccine (#1) 2024 9, 03/01/2018, 02/02/2017, Additional history exists Insurance MEDICARE BLUE TRADITIONAL [place]OS MEDICARE [place] TRADITIONAL OOS MEDICARE Care Teams Fish Stringer Assembler Relationship Specialty Start Date End Date Chacorta Sanchez MD [address] [place] [address] PCP - General Family Medicine 11/01/16
[2024-07-29 19:45] LABS: Alanine Aminotransferase 19 U/L (6-35); Albumin Level 4.3 g/dL (3.5-5.1); Alkaline Phosphatase 119 U/L (38-126); Anion Gap 7 mmol/L (4-12); Aspartate Amino Transferase 34 U/L (14-36); Bilirubin,Total 1.2 mg/dL (0.2-1.3); Blood Urea Nitrogen 24 mg/dL (7-17); Calcium 9.9 mg/dL (8.4-10.2); Carbon Dioxide 29 mmol/L (22-30); Chloride 105 mmol/L (98-107); Estimated Glomerular Filt Rate > 60; Glucose 86 mg/dL (65-110); Potassium 4.3 mmol/L (3.4-5.0); Sodium 141 mmol/L (137-145)
== END 2024-07-29 12:14 | disposition home or self-care (01) ==
PROVIDERS: PCP Family Medicine; Visit Provider Family Medicine
DX: I10 Essential (primary) hypertension (principal)
CPT/HCPCS: 36415; 80053

== ENCOUNTER 2025-03-30 07:55 | Outpatient (CLI) | payer MEDICARE, BC, SELFPAY ==
--- OUTSIDE RECORDS SUMMARY | 2009-03-22 18:00 | XMS_ITS | Continuity of Care Document ---
Author Organization [facility] [place] Address [id number] [place] [address] [place] [address] Phone Care Team Providers Care Summer Sessions Director Name Role Phone [facility] Unavailable Unavail able Shaniqua Patton Unavailable Unavailable Procedures Procedure Date Frames Deluxe BF Polycarb Sphcyl Dawes To +/-4d .12-2d Anti-reflective Coating Sales Tax Tint Plastic, Non-[place] Eye Exam & Treatment No Script Refraction Eye Exam & Treatment BF Polycarb Sphcyl Dawes To +/-4d .12-2d Frames Deluxe Tint Plastic, Non-[place] Tax - Medical Eye Exam & Treatment Advance Directives Directive Yes / No Effective Date File Name No Information Encounters Encounter Description Practice Location Reason(s) For Visit Diagnoses Date Provider Providers Copied on Encounter [facility], [address], [place], [place], [id number], [place] tel:[phone] [facility] No Information 3200 9 [facility] [address] [facility] [address], [facility] [address], [place], [place], [id number], [place]. tel:[phone] Referring Provider: Eric Redman, [address], [place], [address]. tel:[phone] sulting Provider: Shaniqua Patton, [address] [place], [address]. tel:[phone] [facility], [address], [place], [place], [id number], [place] tel:[phone] [facility] No Information Oct-0 2-200 9 Dai OD Eric. [address], [place], [place], [facility], [place]. tel:[phone] [facility], [address], [place], [place], [id number], [place] tel:[phone] [facility] No Information Ken-1 1-200 8 Dai OD Eric. [address], [place], [address], [place]. tel:[phone] [facility], [address] [place] [address] [address], [place], [place], [address], [place] tel:[phone] [facility] No Information Mar-2 9-200 7 [facility] . [address] [facility] [address], [address], [place], [place], [id number], . tel:[phone] Referring Provider: Eric Dai OD A, [facility], [place], [address]. tel:[phone] sulting Provider: Shaniqua Patton, [address] [place] [address], [facility]. tel:[phone] [facility], [address] [place] [address] [address], [place], [place], [id number], [place] tel:[phone] [facility] No Information Mar-2 9-200 7 Dai OD Eric. [address], [place], [address], [place]. tel:[phone] Family History Family Member Type Diagnosis Age At Onset No Information Payers Payer name Insurance type Covered green party ID Authoriza tion(s) No Information Social History Type Description Quantity Date Captured Comments Sex Female Smoking Status No Information Chief Complaint And Reason For Visit No Information Reason For Referral Reason For Referral No Information History Of Present Illness Encounter Date Complaint History Of Prese nt Illness No Information Functional Status Date Functional Assessmen t No Information Instructions Date Instruction Additional Infor mation No Information Assessments Type Assessment Date No Information Patient Care Teams Name Effective Dates (start - stop) Status Members No Information
--- OUTSIDE RECORDS SUMMARY | 2025-03-30 08:02 | XMS_ITS | Clinical Summary ---
Author Organization [facility] [place] [address] Address [address] [place] [address] Care Team Providers Care Inspector Salvage Name Role Phone Chacorta Sanchez MD Primary Care Provider Allergies No known active allergies Medications acetaminophen-c odeine (TYLENOL-CODEIN E #3) 300-30 mg per tablet take 1 tablet by oral route every 6 hours as needed 0 0 03/18/2014 Active multivitamin tablet tablet take 1 tablet by oral route every day with food 0 0 04/26/2015 Active potassium chloride ER (potassium chloride ER) 8 mEq CR capsule Take 1 tablet/capsu le (8 mEq total) by mouth 2 (two) times a day. 60 tablet/capsul e 11 05/02/2018 Active nitrofurantoin (MACRODANTIN) 50 mg capsule Take 1 capsule (50 mg total) by mouth nightly 05/04/2022 Active furosemide (LASIX) 20 mg tablet Take 3 tablets (60 mg total) by mouth daily 270 tablet 3 10/03/2022 Active glucosamine/cho ndr de la garza A sod (OSTEO BI-FLEX ORAL) Take by mouth Active TURMERIC ROOT EXTRACT ORAL Take 400 mg by mouth Active carvediloL (COREG) 3.125 mg tablet Take 1 tablet (3.125 mg total) by mouth 2 (two) times a day with meals 180 tablet 3 03/10/2024 Active apixaban (Eliquis) 5 mg tablet Take 1 tablet (5 mg total) by mouth 2 (two) times a day 180 tablet 3 03/10/2024 Active cyanocobalamin (Vitamin B-12) 500 mcg tabletIndicatio ns:Prevention of Vitamin B12 Deficiency Take 1 tablet (500 mcg total) by mouth daily Active Active Problems Problem Noted Date Diagnosed [...] Date Smoking Tobacco: Never Smokeless Tobacco: Never Tobacco Cessation:Counseling Given: Not Answered Alcohol Use Standard Drinks/Week Comments No 0 (1 standard drink = 0.6 oz pur e alcohol) Comments Unknown Sex and Gender Information Value Date Recorded Sex Assigned at Not on file Legal Sex Female 9: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 SPRING UP SUPERVISOR Gender Identity Not on file Sexual Orientation Not on file Last Filed Vital Signs Vital Sign Reading Time Taken Comments Blood Pressure 138/92 09/18/2024 11:32 AM CDT Pulse 82 09/18/2024 11:32 AM CDT Temperature - - Respiratory Rate 16 01/11/2024 10:01 AM CDT Oxygen Saturation 97% 09/18/2024 11:32 AM CDT Inhaled Oxygen Concentration - - Weight 96.6 kg (213 lb) 09/18/2024 11:32 AM CDT Height 162.6 cm (5' 4) 09/18/2024 11:32 AM CDT Body Mass Index 36.56 09/18/2024 11:32 AM CDT Plan of Treatment Health Maintenance Due Date Last Done Comments Depression Screening 1935 Fall Risk Assessment 1937 Osteoporosis Screening-Bone Density Scan 1937 DTaP/Tdap/Td Vaccine (1 - Tdap) 1948 Hepatitis B Screening 1955 Well Visit 65+ 2002 Zoster Vaccine (2 of 3) 10/19/2016 08/24/2016 Pneumococcal vaccine 65+ (2 of 2 - PPSV23, PCV20, or PCV21) 02/28/2018 01/03/2018 Influenza Vaccine (#1) 2025 9, 03/01/2018, 02/02/2017, Additional history exists Insurance MEDICARE BLUE [employer]ADITIONAL [place] MEDICARE [place] TRADITIONAL OOS MEDICARE Care Teams Inspector Salvage Relationship Specialty Start Date End Date Chacorta Sanchez MD [address] [facility] [address] [place] [address] PCP - General Family Medicine 11/01/16
[2025-03-30 18:45] LABS: Hematocrit 44.1 % (37.0-47.0); Hemoglobin 14.1 g/dL (12.0-15.0); Mean Corpuscular HGB Conc 32.0 g/dl (32-36); Mean Corpuscular Hemoglobin 31.1 pg (26-34); Mean Corpuscular Volume 97.4 fl (80-100); Platelet Count Result 203 k/mm3 (150-375); Red Blood Count 4.53 M/mm3 (4.2-5.4); White Blood Count 4.1 K/mm3 (4.5-10.0)
[2025-03-30 19:00] LABS: Alanine Aminotransferase 14 U/L (6-35); Albumin Level 4.1 g/dL (3.5-5.1); Alkaline Phosphatase 136 U/L (38-126); Anion Gap 5 mmol/L (4-12); Aspartate Amino Transferase 40 U/L (14-36); Bilirubin,Total 1.4 mg/dL (0.2-1.3); Blood Urea Nitrogen 17 mg/dL (7-17); Calcium 9.5 mg/dL (8.4-10.2); Carbon Dioxide 25 mmol/L (22-30); Chloride 109 mmol/L (98-107); Cholesterol 185 mg/dL (0-200); Estimated Glomerular Filt Rate > 60; Glucose 102 mg/dL (65-110); HDL Direct 63 mg/dL; Potassium 3.7 mmol/L (3.4-5.0); Sodium 139 mmol/L (137-145); Total Protein 7.0 g/dL (6.3-8.2); Triglycerides 72 mg/dL (<150)
[2025-03-30 19:35] LABS: Thyroid Stimulating Hormone 1.610 uIU/mL (0.465-4.680)
== END 2025-03-30 07:56 | disposition home or self-care (01) ==
PROVIDERS: PCP Family Medicine; Visit Provider Physician Assistant Medical
DX: I48.20 Chronic atrial fibrillation, unspecified (principal); I10 Essential (primary) hypertension
CPT/HCPCS: 36415; 80053; 80061; 84443; 85027